=== PATIENT | male | born 1970 | race Caucasian/White ===

== ENCOUNTER 2018-02-17 19:22 | Observation (INO) ==
[2018-02-17 20:35] LABS: Basophils # 0.1 K/mm3 (0-0.2); Basophils % 0.6 % (0.1-2.0); Eosinophils # 0.4 K/mm3 (0.0-0.4); Eosinophils % 3.5 % (0.1-12.0); Hematocrit 43.2 % (42.0-52.0); Hemoglobin 16.2 g/dL (14.1-18.0); Lymphocytes # 2.6 K/mm3 (0.7-4.5); Lymphocytes % 21.6 K/mm3 (10-50); Mean Corpuscular HGB Conc 37.6 g/dL (31.8-35.4); Mean Corpuscular Hemoglobin 32.1 pg (27.0-31.2); Mean Corpuscular Volume 85.3 fl (80-94); Mean Platelet Volume 9.9 fl (7.4-10.4); Monocytes # 0.6 K/mm3 (0.1-1.0); Monocytes % 4.6 % (1.7-9.3); Neutrophils # 8.5 K/mm3 (1.8-7.8); Neutrophils % 69.7 % (37.0-80.0); Platelet Count 178 K/mm3 (142-424); Red Blood Count 5.06 M/mm3 (4.60-6.20); Red Cell Distribution Width 14.1 % (11.5-17.5); White Blood Count 12.2 K/mm3 (4.8-10.8)
[2018-02-17 20:49] LABS: Microscopic, Urine URINE MICROSCOPIC (MICROSCOPIC)
[2018-02-17 20:55] LABS: Appearance,Urine CLEAR (Clear); Bilirubin,Urine Negative (Negative); Blood, Urine TRACE-I (Negative); Color,Urine YELLOW (Yellow); Glucose,Urine (UA) Negative (Negative); Ketones,Urine Negative (Negative); Leukocyte Esterase,Urine Negative (Negative); Protein,Urine 3+ (Negative); Specific Gravity, Urine >= 1.030 (1.005-1.030); Urobilinogen,Urine 0.2 EU/dl (0.2)
[2018-02-17 20:55] LABS: Anion Gap 13.9 mEq/L (5-15); Blood Urea Nitrogen 23 mg/dL (7-18); Calcium 8.9 mg/dL (8.5-10.1); Carbon Dioxide 24 mmol/L (21.0-32.0); Chloride 106 mmol/L (98-107); Glucose 109 mg/dL (74-106); Potassium 3.9 mmoL/L (3.5-5.1); Sodium 140 mmol/L (136-145)
--- NOTE | 2018-02-17 21:55 | Emergency Department Note ---
ED Disposition Clinical Impression: Hypertensive crisis, Renal insufficiency Disposition: Admitted as Observation Condition on Discharge: Good - Critical Care Critical Care Time: No Attestation: On 02/17/18, the high probability of a clinically significant, sudden or life threatening deterioration of the following system(s) required my full and direct attention, intervention and personal management. The time I documented below is in addition to time spent performing reported procedures but includes the following listed in this critical care notation. Medical Decision Making - Medical Records Medical records reviewed: Yes: I reviewed the patient's medical records. - Aram Inquiry Pt receiving controlled substance: No Vital Signs: 02/17/18 19:29 02/17/18 20:29 02/17/18 20:53 Temperature 98.4 F Temperature Source Oral Pulse Rate [Left Brachial] 85 74 69 Respiratory Rate 18 20 22 Blood Pressure [Left Arm] 204/142 204/86 208/135 Blood Pressure Mean [Left Arm] 162 125 159 Blood Pressure Source [Left Arm] Automatic Cuff Manual Cuff/ Auscultation Automatic Cuff Blood Pressure Position [Left Arm] Sitting Supine Supine 02 Sat by Pulse Oximetry 96 100 98 Oxygen Delivery Method Room Air Room Air Room Air - Lab Data Lab results reviewed: Yes: I reviewed the patient's lab results. Lab Results 02/17/18 19:47: WBC 12.2 H, RBC 5.06, Hgb 16.2, Hct 43.2, MCV 85.3, MCH 32.1 H, MCHC 37.6 H, RDW 14.1, Plt Count 178, MPV 9.9, Neut % (Auto) 69.7, Lymph % (Auto ) 21.6, [place] % (Auto) 4.6, Eos % (Auto) 3.5, Baso % (Auto) 0.6, Neut # (Auto) 8.5 H, Lymph # (Auto) 2.6, [place] # (Auto) 0.6, Eos # (Auto) 0.4, Baso # (Auto) 0.1 02/17/18 19:47: Sodium 140, Potassium 3.9, Chloride 106, Carbon Dioxide 24, Anion Gap 13.9, BUN 23 H, Creatinine 1.84 H, Estimated Creat Clear 42, Estimated GFR 40 L, Est GFR ( Amer) 48 L, Glucose 109 H, Calcium 8.9, Troponin I < 0.02 02/17/18 20:45: Urine Color Yellow, Urine Appearance Clear, Urine pH 6.0, Ur Specific [place] >= 1.030, Urine Protein 3+, Urine Glucose (UA) Negative, Urine Ketones Negative, Urine Blood Trace-i, Urine Nitrate Negative, Urine Bilirubin Negative, Urine Urobilinogen 0.2, Ur Leukocyte Esterase Negative Result diagrams: 02/17/18 19:47 02/17/18 19:47 Orders (Tests/Meds): ED MEDICATIONS Discontinued Medications Generic Name Dose Route Start Last Admin Trade Name Katt PRN Reason Stop Dose Admin Clonidine HCl 0.1 mg 02/17/18 20:27 02/17/18 20:30 Clonidine 0.1mg Tablet PO 02/17/18 20:28 0.1 mg ONCE ONE Administration ORDERS Category Date Time Status Urinalysis and Microscopic Stat Lab 02/17/18 20:45 Results ECG Request by /Lupis Stat Y 02/17/18 19:43 Ordered - Radiology Data #1 Image(s): Chest Image Reviewed: Yes I reviewed the patient's radiology image Preliminary Findings: Normal/NAD - ECG Data Tracing #1 I reviewed this ECG and interpreted as documented below: Normal Sinus Rhythm: Yes Ischemic changes: non-specific ST-T wave changes ECG compared to prior tracings: this ECG reveals significant changes Headache HPI - General Chief Complaint: Headache Stated Complaint: Shaji BP,HOBBS Time Seen by Provider: 02/17/18 20:00 Mode of Arrival: Ambulatory Source of Information: Patient, Medical Record Limitations: No Limitations Description of Symptoms (Recalled from ER Triage Doc. by RN): Pt states he has has a hx of Hypertension and doesn't take his medicine that his PCP gave him because it makes him sick, and his BP is "sam high" and he has a HOBBS for the last 3 days now. Pt denies calling his PCP because he doesn't have a phone. Pt denies any other symptoms at this time. - History of Present Illness HPI Narrative: pt with elevated bp and hobbs but no visual loss or focal neuro sx- has a hx of htn but has been off meds Complaint: headache Onset (ago): day(s) Onset description: gradual Location: diffuse Severity: moderate Treatments prior to arrival: none - Related Data Home Medications Medication Instructions Recorded Confirmed Aspirin [Aspir 81] 81 mg PO DAILY 02/17/18 02/17/18 Allergies Allergy/AdvReac Type Severity Reaction Status Date / Time No Known Allergies Allergy Verified 02/17/18 19:36 [facility] History I have reviewed the patient's past medical history: Yes Medical History: Denies:: Diabetes Mellitus Type 1, Diabetes Mellitus Type 2 - Social History Smoking Status: Current every day smoker Alcohol Intake: former - Psychiatric History Expresses thoughts of harming self/others: None Suicide Plan Description: No Plan ROS Obtained: Yes All systems reviewed & no additional complaints - Constitutional Constitutional: Denies fever(s) - Eyes Eyes: Denies change in vision - ENT Ears, Nose, Mouth, and Throat: Denies sore throat - Cardiovascular Cardiovascular: Denies chest pain - Respiratory Respiratory: No cough - Gastrointestinal Gastrointestingal: Denies: abdominal pain, vomiting - Genitourinary Male Genitourinary: Denies hematuria - Musculoskeletal Musculoskeletal: Denies joint pain, Denies joint swelling - Integumentary/Breasts Skin/Breast: Denies rash - Neurologic Neurologic: Denies abnormal speech, Denies dizziness, Denies focal weakness, Reports headache(s), Denies loss of vision, Denies seizure-like activity Physical Exam - General General appearance: alert, in no apparent distress - Head Head exam: normocephalic - Eye Eye exam: Present: PERRL, EOMI. Absent: scleral icterus - ENT ENT exam: Present: mucous membranes dry - Neck Neck exam: Present: trachea midline - Respiratory Respiratory exam: Present: normal lung sounds bilaterally - Cardiovascular Cardiovascular exam: Present: regular rate, systolic murmur - Abdominal Exam Abdominal exam: Present: soft - Extremities Exam Extremities exam: Absent: calf tenderness - Neurological Exam Neurological exam: Present: alert, oriented X3, CN II-XII intact, normal gait - Psychiatric Psychiatric exam: Present: normal affect - Skin Skin exam: Absent: rash
[2018-02-17 22:01] LABS: Bacteria,Urine 1+ /lpf; Mucus,Urine 1+ /lpf
[2018-02-18 06:51] LABS: Basophils # 0.1 K/mm3 (0-0.2); Basophils % 0.8 % (0.1-2.0); Eosinophils # 0.4 K/mm3 (0.0-0.4); Eosinophils % 3.4 % (0.1-12.0); Lymphocytes # 2.1 K/mm3 (0.7-4.5); Lymphocytes % 19.3 K/mm3 (10-50); Mean Corpuscular HGB Conc 33.2 g/dL (31.8-35.4); Mean Corpuscular Hemoglobin 28.5 pg (27.0-31.2); Mean Corpuscular Volume 85.8 fl (80-94); Monocytes # 0.5 K/mm3 (0.1-1.0); Monocytes % 4.9 % (1.7-9.3); Neutrophils # 7.9 K/mm3 (1.8-7.8); Neutrophils % 71.7 % (37.0-80.0); Platelet Count 180 K/mm3 (142-424); Red Blood Count 5.59 M/mm3 (4.60-6.20); Red Cell Distribution Width 14.2 % (11.5-17.5); White Blood Count 11.1 K/mm3 (4.8-10.8)
[2018-02-18 07:03] LABS: Anion Gap 13.9 mEq/L (5-15); Blood Urea Nitrogen 22 mg/dL (7-18); Calcium 8.7 mg/dL (8.5-10.1); Carbon Dioxide 24 mmol/L (21.0-32.0); Chloride 105 mmol/L (98-107); Chol/HDL Ratio 6.6 (1-3.5); Cholesterol 232 mg/dL (140-200); Glucose 110 mg/dL (74-106); HDL Cholesterol 35 mg/dL (27-67); Potassium 3.9 mmoL/L (3.5-5.1); Sodium 139 mmol/L (136-145)
[2018-02-18 07:04] LABS: Triglycerides 451 mg/dL (30-200)
--- NOTE | 2018-02-18 07:51 | Pharmacy Consult Notes ---
[facility] Pharmacy VTE Monitoring - Patient Demographics Admission date: 02/17/18 Report Date: 02/18/18 Time: 07:51 Allergies/Adverse Reactions: Patient Allergies No Known Allergies Allergy (Verified 02/17/18 19:36) Height: 1.63 m Weight: 125.447 kg Patient Problems: Current Active Problems Hypertensive crisis (Acute) Renal insufficiency (Acute) - VTE Risk Labs: VTE Related Lab Results Hgb 16.0 g/dL (14.1-18.0) 02/18/18 06:30 Hct 48.0 % (42.0-52.0) 02/18/18 06:30 Plt Count 180 K/mm3 (142-424) 02/18/18 06:30 BUN 22 mg/dL (7-18) H 02/18/18 06:30 Creatinine 1.77 mg/dL (0.70-1.30) H 02/18/18 06:30 Estimated Creat Clear 43 mL/min (0-300) 02/18/18 06:30 Was VTE Risk Assessment Performed: No VTE Score: 3 VTE Risk Level: Low Risk - Prophylaxis VTE Prophylaxis Ordered?: Yes Types of VTE Prophylaxis: TEDS Knee High Location of Applied Device: Bilateral Lower Extremeties - VTE Diagnosis Confirmed Treatment or plan recommended: Continue Current Treatment
--- NOTE | 2018-02-18 08:15 | Consult Report ---
History of Present Illness Consult date: 02/18/18 Requesting physician: Zaki Fuller Consult reason: hypertension Chief complaint: High blood pressure, Headache Additional Medical History:: 1. HTN 2. Tobacco use 3. Hyperlipidemia History of present illness: 47 yo WM admitted for malignant HTN with headaches. Pt stopped taking his BP meds due to nausea. Denies chest pains, previous CAD, history of CVA or seizure activity. EKG is sinus with NSSTTW abnormalities that have been present back to 2016 tracings. Cardiology consulted for evaluation and recommendations. Pt does relate fast heart rates at times without near syncope or syncope. Poor historian. Troponins normal X 4. [facility] History Medical History: Reports:: Hyperlipidemia, Hypertension Denies:: Cancer, Diabetes Mellitus Type 1, Diabetes Mellitus Type 2, Internal Pacemaker, MRSA Other Surgeries: No: Pacemaker Amputation: No Fractures: No - *Social History Educational Level: Completed High School Smoking Status: Current every day smoker Tobacco Type: cigarettes # Packs/Day (cigarettes): 1 Alcohol Intake: former Occupational Status: unemployed Housing: house Household Members: significant other - Psychiatric History Expresses thoughts of harming self/others: None Suicide Plan Description: No Plan *Family Hx:: Hypertension Meds Home Medications Medication Instructions Recorded Confirmed Type Aspirin [Aspir 81] 81 mg PO DAILY 02/17/18 02/17/18 History Allergies Allergy/AdvReac Type Severity Reaction Status Date / Time No Known Allergies Allergy Verified 02/17/18 19:36 Review of Systems - *Cardiovascular Denies chest pain - *Respiratory Reports shortness of breath with activity - *Gastrointestinal Denies abdominal pain - *Neurologic Reports headache(s), Denies abnormal speech, Denies dizziness, Denies localized weakness, Denies loss of vision, Denies seizure-like activity Exam Vital signs and Labs for Last 24 Hours: Temp Pulse Resp BP Pulse Ox 98.2 F 53 L 20 180/120 98 02/18/18 07:53 02/18/18 07:53 02/18/18 07:53 02/18/18 07:53 02/18/18 07:53 Laboratory Results - last 24 hr 02/17/18 19:47: WBC 12.2 H, RBC 5.06, Hgb 16.2, Hct 43.2, MCV 85.3, MCH 32.1 H, MCHC 37.6 H, RDW 14.1, Plt Count 178, MPV 9.9, Neut % (Auto) 69.7, Lymph % (Auto ) 21.6, [place] % (Auto) 4.6, Eos % (Auto) 3.5, Baso % (Auto) 0.6, Neut # (Auto) 8.5 H, Lymph # (Auto) 2.6, [place] # (Auto) 0.6, Eos # (Auto) 0.4, Baso # (Auto) 0.1 02/17/18 19:47: Sodium 140, Potassium 3.9, Chloride 106, Carbon Dioxide 24, Anion Gap 13.9, BUN 23 H, Creatinine 1.84 H, Estimated Creat Clear 42, Estimated GFR 40 L, Est GFR ( Amer) 48 L, Glucose 109 H, Calcium 8.9, Troponin I < 0.02 02/17/18 20:45: Urine Color Yellow, Urine Appearance Clear, Urine pH 6.0, Ur Specific [place] >= 1.030, Urine Protein 3+, Urine Glucose (UA) Negative, Urine Ketones Negative, Urine Blood Trace-i, Urine Nitrate Negative, Urine Bilirubin Negative, Urine Urobilinogen 0.2, Ur Leukocyte Esterase Negative, Urine RBC 3-5 , Urine WBC 3-5, Ur Squamous Epith Cells 3-5, Urine Bacteria 1+, Urine Mucus 1+ 02/18/18 00:30: Troponin I < 0.02 02/18/18 03:40: Troponin I < 0.02 02/18/18 06:30: WBC 11.1 H, RBC 5.59, Hgb 16.0, Hct 48.0, MCV 85.8, MCH 28.5, MCHC 33.2, RDW 14.2, Plt Count 180, MPV 10.0, Neut % (Auto) 71.7, Lymph % (Auto ) 19.3, [place] % (Auto) 4.9, Eos % (Auto) 3.4, Baso % (Auto) 0.8, Neut # (Auto) 7.9 H, Lymph # (Auto) 2.1, [place] # (Auto) 0.5, Eos # (Auto) 0.4, Baso # (Auto) 0.1 02/18/18 06:30: Sodium 139, Potassium 3.9, Chloride 105, Carbon Dioxide 24, Anion Gap 13.9, BUN 22 H, Creatinine 1.77 H, Estimated Creat Clear 43, Estimated GFR 41 L, Est GFR ( Amer) 50 L, Glucose 110 H, Calcium 8.7, Troponin I < 0.02, Triglycerides 451 H, Cholesterol 232 H, HDL Cholesterol 35, Cholesterol/HDL Ratio 6.6 H I & O for Last 24 hours: Intake & Output 02/15/18 02/16/18 02/17/18 02/18/18 11:59 11:59 11:59 11:59 Intake Total 299 / 299 Output Total 800 / 800 Balance -501 / -501 Weight 276 lb 9 oz - *Routine Neck Exam Absent: JVD, carotid bruit - *Routine Respiratory Exam Present: CTA bilaterally - *Routine Cardiovascular Exam Present: RRR. Absent: murmur, gallop, rubs - *Routine Extremities Exam Absent: edema Assessment and Plan (1) Tobacco use Current visit: Yes Status: Acute Category: Social Hx Code(s): Z72.0 - Tobacco use (2) Hypertensive crisis Current visit: Yes Status: Acute Category: Medical Code(s): I16.9 - Hypertensive crisis, unspecified (3) Renal insufficiency Current visit: Yes Status: Acute Category: Medical Code(s): N28.9 - Disorder of kidney and ureter, unspecified - Assessment and plan all Dx Assessment and Plan for all problems:: 1. Continue lisinopril as ordered but monitor renal status 2. Add coreg for BP and palpitations 3. Await echo results 4. Consider renal ultrasound if BP labile after starting meds.
--- NOTE | 2018-02-18 13:32 | History & Physical Report ---
*Admission Date: 02/17/18 *Chief complaint: headache *History of present illness: this wm who has diffuse haque but no focal neuro sx presented to ed for eval - he has known htn but is noncompliant for multiple factors - despite ed treatment remained symptomatic and had abn labs and ekg and was admitted for eval and treatment [facility] History I have reviewed the patient's past medical history: Yes Medical History: Reports:: Hyperlipidemia, Hypertension Denies:: Cancer, Diabetes Mellitus Type 1, Diabetes Mellitus Type 2, Internal Pacemaker, MRSA Other Surgeries: No: Pacemaker Amputation: No Fractures: No - *Social History Educational Level: Completed High School Smoking Status: Current every day smoker Tobacco Type: cigarettes # Packs/Day (cigarettes): 1 Alcohol Intake: former Occupational Status: unemployed Housing: house Household Members: significant other - Psychiatric History Expresses thoughts of harming self/others: None Suicide Plan Description: No Plan *Family Hx:: Hypertension Review of Systems - Review of Systems Review of systems:: pertinent systems reviewed and negative unless documented below - Constitutional Reports headache(s) - Eyes Denies change in vision - ENT Denies dizziness - *Cardiovascular Denies chest pain - *Respiratory Denies cough - *Gastrointestinal Denies abdominal pain - *Genitourinary Denies blood in urine - *Musculoskeletal Denies joint pain - Integumentary/Breasts Denies rash - *Neurologic Reports headache(s), Denies abnormal speech, Denies dizziness, Denies localized weakness, Denies loss of vision, Denies seizure-like activity - Psychiatric Denies anxiety Meds Home Medications Medication Instructions Recorded Confirmed Type Aspirin [Aspir 81] 81 mg PO DAILY 02/17/18 02/17/18 History Allergies Allergy/AdvReac Type Severity Reaction Status Date / Time No Known Allergies Allergy Verified 02/17/18 19:36 Exam Vital signs and Labs for Last 24 Hours: Temp Pulse Resp BP Pulse Ox 98.2 F 53 L 20 180/120 98 02/18/18 07:53 02/18/18 07:53 02/18/18 07:53 02/18/18 07:53 02/18/18 08:00 Laboratory Results - last 24 hr 02/17/18 19:47: WBC 12.2 H, RBC 5.06, Hgb 16.2, Hct 43.2, MCV 85.3, MCH 32.1 H, MCHC 37.6 H, RDW 14.1, Plt Count 178, MPV 9.9, Neut % (Auto) 69.7, Lymph % (Auto ) 21.6, [place] % (Auto) 4.6, Eos % (Auto) 3.5, Baso % (Auto) 0.6, Neut # (Auto) 8.5 H, Lymph # (Auto) 2.6, [place] # (Auto) 0.6, Eos # (Auto) 0.4, Baso # (Auto) 0.1 02/17/18 19:47: Sodium 140, Potassium 3.9, Chloride 106, Carbon Dioxide 24, Anion Gap 13.9, BUN 23 H, Creatinine 1.84 H, Estimated Creat Clear 42, Estimated GFR 40 L, Est GFR ( Amer) 48 L, Glucose 109 H, Calcium 8.9, Troponin I < 0.02 02/17/18 20:45: Urine Color Yellow, Urine Appearance Clear, Urine pH 6.0, Ur Specific [place] >= 1.030, Urine Protein 3+, Urine Glucose (UA) Negative, Urine Ketones Negative, Urine Blood Trace-i, Urine Nitrate Negative, Urine Bilirubin Negative, Urine Urobilinogen 0.2, Ur Leukocyte Esterase Negative, Urine RBC 3-5 , Urine WBC 3-5, Ur Squamous Epith Cells 3-5, Urine Bacteria 1+, Urine Mucus 1+ 02/18/18 00:30: Troponin I < 0.02 02/18/18 03:40: Troponin I < 0.02 02/18/18 06:30: WBC 11.1 H, RBC 5.59, Hgb 16.0, Hct 48.0, MCV 85.8, MCH 28.5, MCHC 33.2, RDW 14.2, Plt Count 180, MPV 10.0, Neut % (Auto) 71.7, Lymph % (Auto ) 19.3, [place] % (Auto) 4.9, Eos % (Auto) 3.4, Baso % (Auto) 0.8, Neut # (Auto) 7.9 H, Lymph # (Auto) 2.1, [place] # (Auto) 0.5, Eos # (Auto) 0.4, Baso # (Auto) 0.1 02/18/18 06:30: Sodium 139, Potassium 3.9, Chloride 105, Carbon Dioxide 24, Anion Gap 13.9, BUN 22 H, Creatinine 1.77 H, Estimated Creat Clear 43, Estimated GFR 41 L, Est GFR ( Amer) 50 L, Glucose 110 H, Calcium 8.7, Troponin I < 0.02, Triglycerides 451 H, Cholesterol 232 H, HDL Cholesterol 35, Cholesterol/HDL Ratio 6.6 H I & O for Last 24 hours: Intake & Output 02/16/18 02/17/18 02/18/18 02/19/18 11:59 11:59 11:59 11:59 Intake Total 779 / 779 Output Total 800 / 800 Balance - Weight 276 lb 9 oz - Constitutional no acute distress - *Routine HEENT Exam Head: Present: normocephalic, atraumatic Eye: Present: EOMI, PERRL ENT: Present: mucous membranes dry - *Routine Neck Exam Present: supple - *Routine Respiratory Exam Present: CTA bilaterally - *Routine Cardiovascular Exam Present: RRR, murmur - *Routine Abdominal Exam Present: soft - *Routine Extremities Exam Absent: calf tenderness - *Routine Skin Exam Present: intact - *Routine Neurological Exam Present: alert, oriented X3, CN II-XII intact - Routine Psychiatric Exam Present: normal affect H&P: Result - Labs Labs: Short CBC 02/17/18 02/18/18 Range/Units 19:47 06:30 WBC 12.2 H 11.1 H (4.8-10.8) K/mm3 Hgb 16.2 16.0 (14.1-18.0) g/dL Hct 43.2 48.0 (42.0-52.0) % Plt Count 178 180 (142-424) K/mm3 [facility] 02/17/18 02/18/18 19:47 06:30 Sodium 140 139 Potassium 3.9 3.9 Chloride 106 105 Carbon Dioxide 24 24 BUN 23 H 22 H Creatinine 1.84 H 1.77 H Glucose 109 H 110 H Calcium 8.9 8.7 Cardiac Enzymes 02/17/18 02/18/18 02/18/18 Range/Units 19:47 00:30 03:40 Troponin I < 0.02 < 0.02 < 0.02 (0.00-0.06) ng/ml 02/18/18 Range/Units 06:30 Troponin I < 0.02 (0.00-0.06) ng/ml Urine 02/17/18 Range/Units 20:45 Urine Color Yellow (Yellow) Urine Appearance Clear (Clear) Urine pH 6.0 (5.0-8.5) Ur Specific [place] >= 1.030 (1.005-1.030) Urine Protein 3+ (Negative) Urine Glucose (UA) Negative (Negative) Assessment and Plan (1) Tobacco use Current visit: Yes Status: Acute Category: Social Hx Code(s): Z72.0 - Tobacco use (2) Hypertensive crisis Current visit: Yes Status: Acute Category: Medical Code(s): I16.9 - Hypertensive crisis, unspecified (3) Renal insufficiency Current visit: Yes Status: Acute Category: Medical Code(s): N28.9 - Disorder of kidney and ureter, unspecified (4) Overweight Current visit: Yes Status: Acute Category: Medical Code(s): E66.3 - Overweight
[2018-02-19 08:42] LABS: Anion Gap 13.7 mEq/L (5-15); Calcium 8.4 mg/dL (8.5-10.1); Potassium 3.7 mmoL/L (3.5-5.1)
--- NOTE | 2018-02-19 08:52 | Progress Note ---
Subjective Date: 02/19/18 Time: 08:50 Principal diagnosis: Malignant HTN Interval history: 47-year-old white male in bed in no acute distress. He denies headache or chest pain. Somewhat frustrated by the lack of ability to move around due to the IV fluids. He does have some low back and buttocks discomfort from being in bed. Blood pressure continues to be labile but overall improving slowly. Exam Vital signs and Labs for Last 24 Hours: Temp Pulse Resp BP Pulse Ox 97.8 F 61 20 190/120 99 02/19/18 07:37 02/19/18 07:37 02/19/18 07:37 02/19/18 07:37 02/19/18 07:37 Laboratory Results - last 24 hr 02/19/18 08:15: Sodium 140, Potassium 3.7, Chloride 105, Carbon Dioxide 25, Anion Gap 13.7, BUN 24 H, Creatinine 1.65 H, Estimated Creat Clear 46, Estimated GFR 45 L, Est GFR ( Amer) 54 L, Glucose 128 H, Calcium 8.4 L I & O for Last 24 hours: Intake & Output 02/16/18 02/17/18 02/18/18 02/19/18 11:59 11:59 11:59 11:59 Intake Total 779 / 779 2600 / 2600 Output Total 800 / 800 2700 / 2700 Balance -21 / -21 -100 / -100 Weight 276 lb 9 oz 276 lb 9.012 oz - *Routine HEENT Exam Head: Present: normocephalic Eye: Present: EOMI - *Routine Respiratory Exam Present: CTA bilaterally - *Routine Cardiovascular Exam Present: RRR - *Routine Extremities Exam Absent: edema Progress Note: A&P (1) Hypertensive crisis Status: Acute Current Visit: Yes (2) Tobacco use Status: Acute Current Visit: Yes (3) Renal insufficiency Status: Acute Current Visit: Yes (4) Overweight Status: Acute Current Visit: Yes Assessment and Plan for All Diagnoses:: Will increase Coreg to 12.5 mg twice daily Continue Norvasc 10 mg daily. Echocardiogram reviewed and show normal LVEF but with moderate concentric LVH. Recommend changing from lisinopril to losartan HCT 50/12.5 mg daily upon discharge. Patient is adament about going home today. Needs close management of BP as outpatient, either with PCP or our office.
--- NOTE | 2018-02-19 15:24 | Cardiology Report ---
PROCEDURE: 2-D M-mode and color Doppler study INDICATIONS FOR THE TEST: Chest pain COPD Heart Murmur+ Tobacco Smoking+ Palpitations Fatigue Syncope Edema Hypertension+Diabetes Mellitus Rheumatic Fever SOB [place] Obesity Hyperlipidemia Family History HD Additional History NON-COMPLIANT PATIENT INFORMATION HEIGHT: 64 WEIGHT:276 GENDER: Male B/P:208/142 2-D/M-MODE INTERPRETATION: 2-D MEASUREMENTS OBSERVED VALUES IN CMS Right Ventricular Dimension (RVDd) 2.2 Interventricular Septum (Thickness)(IVsd) 1.1 Left Ventricular Internal Dimensions(LVIDd) 5.6 Left Ventricular Posterior Wall (Thickness)(LVPWd) 1.0 Aortic Root 3.4 Aortic Cusp Separation 2.1 Left Atrial Dimensions (LAD) 4.9 2D 1. Left atrium is moderately enlarged, left ventricle is normal size, there is qualitatively moderately left ventricular hypertrophy present, visually estimated ejection fraction 50% with no obvious regional wall motion abnormality. 2. The right atrium is normal size, right ventricle is qualitatively mildly enlarged with normal contractility. 3. The aortic valve is minimally thickened and fibrosed. 4. The mitral and tricuspid valvular grossly normal. 5. The pulmonic valve is poorly visualized. 6. No significant pericardial effusion noted. DOPPLER INTERROGATION: Doppler interrogation of the aortic, mitral and tricuspid valvular presence of mild mitral and tricuspid regurgitation, tricuspid and jet velocity insufficient for calculation of the right ventricular systolic pressure, grade 1 diastolic dysfunction seen with tissue Doppler evidence of raised left atrial pressure. Tricuspid regurgitant jet velocity is insufficient for calculation of the right ventricular systolic pressure. CONCLUSION: 1. Enlarged left atrium, normal left ventricular size, moderate concentric left ventricular estimated ejection fraction 50% with no obvious regional wall motion abnormality, grade 1 diastolic dysfunction seen with tissue Doppler evidence of raised left atrial pressure. 2. Mild mitral and tricuspid regurgitation 3. No significant pericardial effusion noted.
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
== END 2018-02-19 18:30 | disposition home or self-care (01) ==
LOC: ER 19:22 → 2ND 19:22
PROVIDERS: ADMIT Emergency Medicine; ATTEND Emergency Medicine
CPT/HCPCS: 36415; 71020; 71046; 80048; 80061; 81001; 84484; 85025; 93005; 93306; 93976; 99285; G0378

== ENCOUNTER → 2018-03-12 06:03 | Outpatient (CLI) | payer BC, SELFPAY | PROVIDERS: Family Provider Family Medicine; PCP Emergency Medicine; Visit Provider Internal Medicine | DX: I16.9 Hypertensive crisis, unspecified (principal); E66.3 Overweight; N28.9 Disorder of kidney and ureter, unspecified; I10 Essential (primary) hypertension; Z72.0 Tobacco use ==

== ENCOUNTER → 2018-03-23 06:16 | Outpatient (CLI) | payer BC, SELFPAY ==
--- NOTE | 2018-03-23 06:20 | NM_ITS ---
CARDIOLITE SPECT MYOCARDIAL PERFUSION SCAN, REST AND STRESS: EXERCISE STRESS [facility] REVIEW QGS EF AND WALL MOTION EVALUATION: QPS - PERFUSION EVALUATION HISTORY: HTN DOSE: 10.60 mCi technetium 99m mibi intravenously at rest followed by 31.3 mCi technetium 99m mibi following the intravenous ministration of 0.4 mg of Lexiscan. Resting blood pressure is 151/93. Stress blood pressure 165/65. FINDINGS: Ejection fraction is calculated to be 37%. Stress images reveal severely decreased activity in the inferior wall with severely decreased activity in the apex mildly decreased in the anterior wall. Rest images reveal slightly improved activity in the apex but no significant change. Gated images calculated ejection fraction of 37% with mid anterior apical and inferior apical hypokinesis. Left ventricular dilatation is present IMPRESSION: This is an abnormal high risk Myoview was severe left ventricular dysfunction large regional wall motion abnormalities and left ventricular dilatation. There appears to be a nontransmural myocardial infarction involving most of the inferior wall with partial reversibility in the apex and previous nontransmural myocardial infarction involving the anterior wall with associated regional wall motion abnormality. Clinical correlation is advised
--- NOTE | 2018-03-23 07:15 | HMH.ITSHM ---
PREDNISONE HYDROCHLOROTHIAZIDE CARVEDILOL AMLODIPINE LOSARTAN ATORVASTATIN ASA
== END ==
PROVIDERS: Family Provider Family Medicine; PCP Emergency Medicine; Visit Provider Internal Medicine
DX: E66.3 Overweight (principal); I10 Essential (primary) hypertension; I16.9 Hypertensive crisis, unspecified; N28.9 Disorder of kidney and ureter, unspecified; Z72.0 Tobacco use
CPT/HCPCS: 78452; 93017; A9502; J2785

== ENCOUNTER 2018-10-30 16:33 | Emergency (ER) | payer OTHER, SELFPAY ==
[2018-10-30 16:33] VITALS: BP 174/116; BP 192/110; PULSE 57; PULSE 61; RESP 20; TEMP 36.6; O2SAT 100; BMI 42.9
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
[2018-10-30 18:20] VITALS: BP 163/89; PULSE 88; RESP 16; TEMP 36.6; O2SAT 97
== END 2018-10-30 18:21 | disposition home or self-care (01) ==
PROVIDERS: Emergency Provider Emergency Medicine; PCP Emergency Medicine
DX: S20.219A Contusion of unspecified front wall of thorax, initial encounter (principal); S40.012A Contusion of left shoulder, initial encounter; E78.5 Hyperlipidemia, unspecified; I10 Essential (primary) hypertension; F17.210 Nicotine dependence, cigarettes, uncomplicated; V89.2XXA Person injured in unspecified motor-vehicle accident, traffic, initial encounter
CPT/HCPCS: 71046; 73000; 99282

== ENCOUNTER → 2019-02-19 10:43 | Outpatient (CLI) | payer BC, SELFPAY | LOC: RT 10:44 | PROVIDERS: PCP Emergency Medicine; Visit Provider Internal Medicine Cardiovascular Disease | DX: I47.1 Supraventricular tachycardia (principal); R07.9 Chest pain, unspecified; R06.02 Shortness of breath; I10 Essential (primary) hypertension; I25.10 Atherosclerotic heart disease of native coronary artery without angina pectoris; N18.9 Chronic kidney disease, unspecified | CPT/HCPCS: 93270 ==

== ENCOUNTER 2020-01-04 15:08 | Emergency (ER) | payer BC, SELFPAY ==
[2020-01-04 15:10] VITALS: BP 181/116; PULSE 88; RESP 18; TEMP 36.8; O2SAT 100; BMI 42.9
--- NOTE | 2020-01-04 15:36 | HMH.EDUTC ---
[facility] Disposition Clinical Impression: Wound of left lower extremity Qualifiers: Encounter type: initial encounter Qualified Code(s): S81.802A - Unspecified open wound, left lower leg, initial encounter Disposition: Home, Self-Care Condition on Discharge: Good Instructions: DI for Wound Infection, Skin Wound, Clindamycin Additional Instructions: Keep wound area clean and dry Use Hibacleanse to clean area *Make sure to take medication as prescribed Make sure to follow up as discussed for wound debridement and cleaning Tomorrow evening after 8pm in the ED with Dr Case Return if needed Straight to ER if any life threatening symptoms Prescriptions: clindamycin HCL [Clindamycin HCl 300mg Cap] 300 mg PO Q6 10 Days #40 cap Transmission Status: Pending to [facility] Referrals: Zaki Fuller MD [Primary Care Provider] - As needed Time of Disposition: 16:06 Medical Decision Making - Aram Inquiry Pt receiving controlled substance: No Aarm was queried for this patient: No Vital Signs: 01/04/20 15:10 Temperature 98.2 F Temperature Source Oral Pulse Rate [Radial] 88 Respiratory Rate 18 Blood Pressure [Right Arm] 181/116 H Blood Pressure Mean [Right Arm] 137 Blood Pressure Source [Right Arm] Automatic Cuff Blood Pressure Position [Right Arm] Sitting 02 Sat by Pulse Oximetry 100 Oxygen Delivery Method Room Air Medical Decision Narrative: Spoke with patient about transfer to ED for further evaluation, labs and testing and patient declined at this time State that he didn't have time Spoke with Dr Case and he came to [facility] and spoke with patient and again recommended patient come to ED for further imaging, lab testing and debridment of wound and patient still refused, Agreed to return tomorrow night when Dr Caes in ED for further treatment and evaluation. Dr Case recommended Clindamycin 900mg IM then start on Clindamycin 300mg QID and return immediately to ED if any life threatening symptoms [facility] HPI - General Stated complaint: sore L Leg Time Seen by Provider: 01/04/20 15:37 Mode of Arrival: Ambulatory Source of Information: Patient Limitations: No Limitations Description of Symptoms (Recalled from Triage Doc. by RN): sore on the lateral side of his left leg for one month HEENT Symptoms (Recalled from RN notes): No Resp Symptoms (Recalled from RN notes): No Skin Symptoms (Recalled from RN notes): Yes MS Symptoms (Recalled from RN notes): No Functional Status (Recalled from RN notes): wnl - History of Present Illness Provider Complaint: Patient states that he has a wound on his left lower leg that has continued to get worse over the last month States that he was seen and treated in the ER a few months ago and placed on antibiotics and one of the wounds cleared up but then another area started State that he has been trying to take care of it at home but it has continued to get worse States that he has been trying to keep the dog from licking it - Related Data Previous Rx's Medication Instructions Recorded predniSONE [Prednisone 20mg 20 mg PO BID #10 tab 09/11/19 Tab] clindamycin HCL [Clindamycin HCl 300 mg PO Q6 10 Days #40 cap 01/04/20 300mg Cap] Allergies Allergy/AdvReac Type Severity Reaction Status Date / Time No Known Allergies Allergy Verified 02/19/19 09:33 - Worker's Comp Is this a Worker's Comp case?: No [facility] History - Hepatitis A Screen Drug use history?: No High risk sexual behaviors?: No History of sexually transmitted infection?: No Currently employed?: No Childcare worker?: No Do you have indoor plumbing?: Yes Do you have electricity?: Yes Attestation statement:: This patient has been screened for Hepatitis A risk factors. I have reviewed the patient's past medical history: Yes Medical History: Reports:: Atrial Fibrillation, Coronary Artery Disease, Hyperlipidemia, Hypertension Denies:: Cancer, Diabetes Mellitus Type 1, Diabetes Mellitus
[2020-01-04 16:12] VITALS: BP 181/116; PULSE 88; RESP 18; TEMP 36.8; O2SAT 100
== END 2020-01-04 16:14 | disposition home or self-care (01) ==
PROVIDERS: Emergency Provider Nurse Practitioner; PCP Emergency Medicine
DX: S81.802A Unspecified open wound, left lower leg, initial encounter (principal); I48.20 Chronic atrial fibrillation, unspecified; I25.10 Atherosclerotic heart disease of native coronary artery without angina pectoris; E78.5 Hyperlipidemia, unspecified; I10 Essential (primary) hypertension; F17.210 Nicotine dependence, cigarettes, uncomplicated
CPT/HCPCS: 96372; 99201

== ENCOUNTER 2020-01-05 19:30 | Emergency (ER) | payer BC, SELFPAY ==
[2020-01-05 19:32] VITALS: TEMP 36.7
[2020-01-05 19:40] VITALS: BP 220/140; PULSE 82; RESP 18; O2SAT 97; BMI 47.2
--- NOTE | 2020-01-05 19:47 | CT_ITS ---
PROCEDURE: CT LOWER LEG LT WO CON CLINICAL HISTORY: left leg wound COMPARISON: No exams were available for comparison TECHNIQUE: Axial images obtained with sagittal and coronal reformats. All CT scans at the facility use one or more dose reduction, viz: automated exposure control, ma/kV adjustment per patient size (including targeted exams where dose is matched to indication, i.e. head), or iterative reconstruction technique. FINDINGS: There are no bony abnormalities. There is a shallow 21 millimeter subcutaneous ulcer at the level of the mid fibular diaphysis. There is associated edema of majority of the left lower extremity. A small knee joint effusion is noted. IMPRESSION: Shallow mid fibular diaphyseal soft tissue ulcer with associated mild cellulitis Dictated by: Seferino Menendez 01/06/2020 08:39 Electronically signed by Seferino Menendez in [place] 01/06/2020 08:39
[2020-01-05 20:02] VITALS: BP 178/102; PULSE 84; RESP 16; O2SAT 98
[2020-01-05 20:26] LABS: Alanine Aminotransferase 23 U/L (12-78); Albumin Level 4.3 g/dl (3.5-5.0); Albumin/Globulin Ratio 1.2 (1.1-1.8); Alkaline Phosphatase 129 U/L (38-126); Anion Gap 12.6 mEq/L (5-15); Aspartate Amino Transferase 34 U/L (17-59); Bilirubin,Total 0.9 mg/dl (0.2-1.3); Blood Urea Nitrogen 45 mg/dl (9-20); Calcium 9.3 mg/dl (8.4-10.2); Carbon Dioxide 22 mmol/L (22.0-30.0); Chloride 105 mmol/L (98-107); Creatinine Clearance Estimated 24 mL/min (50-200); Estimated Glomerular Filt Rate 22 ml/min (>60); GFR (African American) 26 ML/MIN (>60); Globulin 3.6 g/dL (1.3-3.2); Glucose 103 mg/dl (74-100); Potassium 3.6 mmoL/L (3.5-5.1); Sodium 136 mmol/L (136-145); Total Protein,Serum 7.9 g/dl (6.3-8.2); Uric Acid 10.6 mg/dl (3.5-8.5)
[2020-01-05 20:27] LABS: Lactic Acid 0.9 mmol/L (0.7-2.1)
[2020-01-05 20:30] LABS: Hemoglobin A1C 5.3 % (4.0-6.0)
[2020-01-05 20:32] LABS: C-Reactive Protein 14.1 mg/L (0-4)
[2020-01-05 20:33] LABS: Basophils # 0.1 K/mm3 (0-0.2); Basophils % 0.5 % (0.1-2.0); Eosinophils # 0.4 K/mm3 (0.0-0.4); Eosinophils % 2.5 % (0.1-12.0); Hematocrit 39.1 % (42.0-52.0); Hemoglobin 13.4 g/dL (14.1-18.0); Lymphocytes # 2.9 K/mm3 (0.7-4.5); Lymphocytes % 20.4 % (10-50); Mean Corpuscular HGB Conc 34.2 g/dL (31.8-35.4); Mean Corpuscular Hemoglobin 28.7 pg (27.0-31.2); Mean Platelet Volume 9.8 fl (7.4-10.4); Monocytes # 0.8 K/mm3 (0.1-1.0); Neutrophils # 9.9 K/mm3 (1.8-7.8); Neutrophils % 70.5 % (37.0-80.0); Platelet Count 231 K/mm3 (142-424); Red Blood Count 4.65 M/mm3 (4.60-6.20); Red Cell Distribution Width 14.5 % (11.5-17.5); White Blood Count 14.1 K/mm3 (4.8-10.8)
--- NOTE | 2020-01-05 20:41 | PC.NURSE ---
spoke with rad and discussed renal function. not able to use contrast at this time.
--- NOTE | 2020-01-05 20:49 | PC.NURSE ---
pt to rad.
[2020-01-05 21:15] LABS: Erythrocyte Sedimentation Rate 94 mm/hr (0-15)
--- NOTE | 2020-01-05 21:35 | HMH.EDSKAF ---
ED Disposition Clinical Impression: Abscess of skin or subcutaneous tissue, Necrotic eschar Disposition: Home, Self-Care Condition on Discharge: Good Instructions: DI for Skin Abscess Additional Instructions: If condition worsens as and getting a fever or the redness around the area start spreading up the leg please return back to the emergency department. Otherwise please follow-up with Dr. Tomlin and surgery on Friday in his office. Please call tomorrow morning for an appointment. Prescriptions: clindamycin HCL [Clindamycin HCl 300mg Cap] 300 mg PO Q6 10 Days #40 cap Transmission Status: Pending to [facility] Referrals: Zaki Fuller MD [Primary Care Provider] - - Critical Care Critical Care Time: No Attestation: On 01/05/20, the high probability of a clinically significant, sudden or life threatening deterioration of the following system(s) required my full and direct attention, intervention and personal management. The time I documented below is in addition to time spent performing reported procedures but includes the following listed in this critical care notation. Medical Decision Making - Medical Records Medical records reviewed: Yes: I reviewed the patient's medical records. - Aram Inquiry Pt receiving controlled substance: No Vital Signs: 01/05/20 19:32 01/05/20 19:40 01/05/20 20:02 Temperature 98.1 F Temperature Source Oral Pulse Rate [Right Brachial] 82 84 Respiratory Rate 18 16 Blood Pressure [Right Arm] 220/140 H 178/102 H Blood Pressure Mean [Right Arm] 166 127 Blood Pressure Source [Right Arm] Automatic Cuff Blood Pressure Position [Right Arm] Sitting Sitting 02 Sat by Pulse Oximetry 97 98 Oxygen Delivery Method Room Air Room Air - Lab Data Lab results reviewed: Yes: I reviewed the patient's lab results. Lab Results 01/05/20 20:00: WBC 14.1 H, RBC 4.65, Hgb 13.4 L, Hct 39.1 L, MCV 84.0, MCH 28.7, MCHC 34.2, RDW 14.5, Plt Count 231, MPV 9.8, Neut % (Auto) 70.5, Lymph % (Auto) 20.4, Sully % (Auto) 6.0, Eos % (Auto) 2.5, Baso % (Auto) 0.5, Neut # (Auto) 9.9 H, Lymph # (Auto) 2.9, Sully # (Auto) 0.8, Eos # (Auto) 0.4, Baso # (Auto) 0.1, ESR 94 H 01/05/20 20:00: Sodium 136, Potassium 3.6, Chloride 105, Carbon Dioxide 22, Anion Gap 12.6, BUN 45 H, Creatinine 3.10 H, Estimated Creat Clear 24, Estimated GFR 22 L, Est GFR ( Amer) 26 L, Glucose 103 H, Uric Acid 10.6 H, Calcium 9.3, Total Bilirubin 0.9, AST 34, ALT 23, Alkaline Phosphatase 129 H, C-Reactive Protein 14.1 H, Total Protein 7.9, Albumin 4.3, Globulin 3.6 H, Albumin/Globulin Ratio 1.2 01/05/20 20:00: Hemoglobin A1c 5.3 01/05/20 20:00: Lactate 0.9 Result diagrams: 01/05/20 20:00 01/05/20 20:00 Orders (Tests/Meds): ED MEDICATIONS Generic Name Dose Route Start Last Admin Trade Name Freq PRN Reason Stop Dose Admin Sodium Chloride 1,000 mls @ 999 mls/hr 01/05/20 20:45 01/05/20 20:40 Sod Chlor 0.9% 1000ml Bag IV 01/05/20 21:45 999 mls/hr .Q1H1M LOYD Administration ORDERS Category Date Time Status CT lower leg LT wo con Stat Cat Scan 01/05/20 19:47 Taken Blood Culture Stat Micro 01/05/20 20:00 Received - CT Data CT Scan: Other (Lower extremity) Time Received: 21:[address] Reviewed: Yes: I have viewed the radiologist's interpretation Preliminary Findings: Normal/NAD (There is no underlying abscess on the area of necrosis is only extending into the superficial levels down into the dermis.) Medical Decision Narrative: Spoke to Dr. Tomlin about this patient and we both agree that this patient probably does not need to be admitted but can be treated with p.o. antibiotics and be seen in the office on Friday to set up a debridement of the necrotic lesion. Of course if the patient's condition worsens he is to return to the emergency department immediately for developing a fever or worsening of the cellulitis or increased pain. Skin/Abscess/FB HPI - General Chief complaint
[2020-01-05 22:00] VITALS: BP 123/75; PULSE 65; RESP 16; TEMP 36.8; O2SAT 98
== END 2020-01-05 22:25 | disposition home or self-care (01) ==
PROVIDERS: Emergency Provider Family Medicine; PCP Emergency Medicine
DX: L03.116 Cellulitis of left lower limb (principal); I25.10 Atherosclerotic heart disease of native coronary artery without angina pectoris; I10 Essential (primary) hypertension; I48.91 Unspecified atrial fibrillation; E78.5 Hyperlipidemia, unspecified; F17.210 Nicotine dependence, cigarettes, uncomplicated
CPT/HCPCS: 73700; 80053; 83036; 83605; 84550; 85025; 85651; 86140; 87040; 96365; 96367; 99283; 99284

== ENCOUNTER 2020-01-10 10:08 | Inpatient (IN) | payer BC, SELFPAY ==
[2020-01-10] VITALS (9 sets, daily range): BP systolic 127–234; BP diastolic 82–140; PULSE 52–65; RESP 15–20; TEMP 36.7–37; O2SAT 93–99; BMI 41.1
--- NOTE | 2020-01-10 10:45 | HMH.CNCARD ---
History of Present Illness Consult date: 01/10/20 Requesting physician: Zaki Fuller Consult reason: pre-op evaluation Chief complaint: Left leg pain/ulcer Additional Medical History:: 1. Malignant hypertension A. Echocardiogram, 02/2018, enlarged left atrium, normal LV size, moderate concentric LVH with EF of 50%. No regional wall motion abnormality. Grade 1 diastolic dysfunction. Mild MR and TR. 2. Coronary artery disease A. Abnormal high risk stress test with appearance of nontransmural OR involving inferior wall with partial reversibility in the apex and previous nontransmural OR involving anterior wall with associated regional wall motion abnormality. 03/2018 B. Cardiac catheterization 04/13/2018 showed mild to moderate [id number] coronary artery disease of the LAD, ramus, circumflex and RCA. 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 Normal left ventricular ejection fraction with LVEDP 15 mmHg 3. Ongoing tobacco use 4. Left lower extremity ulcer/cellulitis 5. Chronic kidney disease, stage III-IV A. Creatinine 2.1-3.1 with GFR 22-33 by labs from 02/2019 and 01/01/2020 6. Paroxysmal atrial fibrillation, 02/2019 A. Previously prescribed Xarelto therapy but patient is noncompliant 7. Medication noncompliance complicates all aspects of care. History of present illness: 49-year-old white male seen in our office earlier today for evaluation prior to surgery of left lower extremity ulcer with plans for debridement. I was contacted by Dr. Alvarez on Friday with concern for the patient's blood pressure being greater than 240 systolic. Patient was restarted on his carvedilol 12.5 mg twice daily with plans to see me this a.m. Patient's blood pressure in our office was noted to be 221/127 mmHg. Patient is in quite a bit of pain with the left leg and did not take his blood pressure medicine this morning because he was following instructions to not take anything by mouth with plan for surgery this afternoon. Patient denies any chest pain, pressure or tightness. His EKG in the office was unchanged from previous tracings. Shows sinus rhythm with ST-T abnormalities in the inferior lateral leads. No acute ST segment changes noted. I discussed with the patient the option of being admitted to the hospital due to his markedly elevated blood pressure for better control and potentially undergoing surgery tomorrow. We could also achieve some pain control in the interim. He did agree with this. I spoke with Dr. Fuller and Dr. Alvarez and all were in agreement. [facility] History Medical History: Reports:: Atrial Fibrillation, Coronary Artery Disease, Hyperlipidemia, Hypertension, Transient Ischemic Attacks (TIA) Denies:: Cancer, Diabetes Mellitus Type 1, Diabetes Mellitus Type 2, Internal Pacemaker, MRSA *Have you ever received a pneumonia vaccine?: No *Have you received a flu vaccine this season?: Yes Other Surgeries: Yes: Cardiac Catheterization, Other. No: Pacemaker Amputation: No Fractures: No - *Social History Smoking Status: Current every day smoker Tobacco Type: cigarettes # Packs/Day (cigarettes): 1 Alcohol Intake: never Alcohol Intake Frequency:: a few times a month Substance Use Type: denies use *Occupational Status:: employed Housing: other Household Members: significant other *Travel in the last 8 weeks: None Family Hx:: Hypertension Meds Home Medications Medication Instructions Recorded Confirmed Type carvediloL [Carvedilol 12.5mg Tab] 12.5 mg PO BID 01/10/20 01/10/20 History clindamycin HCL [Clindamycin HCl 300 mg PO Q6 01/10/20 01/10/20 History 300mg Cap] Allergies Allergy/AdvReac Type Severity Reaction Status Date / Time No Known Allergies Allergy Verified 01/10/20 09:34 Review of Systems - Review of Systems Review of systems:: pertinent systems reviewed and negative unless documented below - *Cardiovascular Reports shortnes
--- NOTE | 2020-01-10 11:10 | CA_ITS ---
APPROVED REPORT Exhaust Tender: Herminia Corley RVT Study Quality: FairAdequate Indications: Uncontrolled HTN Risk Factors Hypertension Hyperlipidemia Obesity Smoking Renal Artery Doppler Origin (R) 58.6/ cm/sec Proximal (R) 67.8/ cm/sec Mid (R) 38.7/ cm/sec Distal (R) 43.9/ cm/sec Renal Aorta Ratio (R) 1.11 Segmental A. (R) 20.9/10.9 cm/sec RI: 0.47 Segmental A. Sup (R) 17.3/5.0 cm/sec Segmental A. Mid (R) 19.1/10.9 cm/sec Segmental A. Inf (R) 20.9/10.9 cm/sec Origin (L) 47.4/ cm/sec Proximal (L) 33.2/ cm/sec Mid (L) 33.7/ cm/sec Distal (L) 24.2/ cm/sec Renal Aorta Ratio (L) 0.78 Segmental A. (L) 25.5/6.2 cm/sec RI: 0.75 Segmental A. Sup (L) 21.4/5.5 cm/sec Segmental A. Mid (L) 24.1/6.9 cm/sec Segmental A. Inf (L) 25.5/6.2 cm/sec Renal Measurements Kidney Size (R) 11.3x5.8 cm Cortical Thickness (R) 1.7 cm Kidney Size (L) 11.2x8.7 cm Cortical Thickness (L) 0.9 cm Findings Study suggests no evidence of bilateral renal artery stenosis. Conclusion Study suggests no evidence of bilateral renal artery stenosis. Electronically signed by : Jefferson Qureshi MD 01/10/2020 17:20:41
--- NOTE | 2020-01-10 11:17 | P.CONPHA_ITS ---
[facility] VTE Monitoring - Patient Demographics Admission date: 01/10/20 Report Date: 01/10/20 Time: 11:17 Allergies/Adverse Reactions: Patient Allergies No Known Allergies Allergy (Verified 01/10/20 09:34) Height: 1.63 m Weight: 108.862 kg - VTE Risk Was VTE Risk Assessment Performed: Yes VTE Score: 3 VTE Risk Level: Low Risk Clinical Trial Participant: No - Prophylaxis VTE Prophylaxis Ordered?: Yes Types of VTE Prophylaxis: TEDS Knee High
--- NOTE | 2020-01-10 11:18 | HMH.PHAINT ---
HOME MEDICATION RECONCILIATION COMPLETED USING LIST FROM HOME PHARMACY IN [place], [place].
--- NOTE | 2020-01-10 13:20 | PC.NURSE ---
spoke with aSdie in office about consult
[2020-01-10 14:52] LABS: Coronavirus 19 IgG Antibody Negative (Negative); Coronavirus 19 IgM Antibody Negative (Negative)
--- NOTE | 2020-01-10 15:16 | HMH.GSCON ---
*Admission Date: 01/10/20 *Reason for consult:: Leg wound *History of present illness: Patient is a 49-year-old male with history of coronary artery disease, angina, atrial fibrillation, tobacco dependence, hypertension, renal insufficiency, history of hypertensive crisis. He was referred by the emergency department for a necrotic ulcerated area on the leg and was seen in the office 3 days ago. Patient states that [place] in [place]. He states that he may have sustained injury to the area. He has had a necrotic tender wound on the left lower lateral area for about 1 month. He had been seen in the [facility] recently and started on antibiotics and then followed up in the emergency department. It was felt that he needed to be seen relatively urgently as an outpatient for surgery for possible debridement. Of note, patient has the above-mentioned medical problems and is normally on multiple antihypertensives and Xarelto but he has not been taking these for quite some time. He quit taking his antihypertensives. He has refused Xarelto in the past. He is normally under the care of Dr. Amanuel Fuller and has seen cardiology at this institution as well. When he was seen in the office 3 days ago plan was made for tentative debridement as an outpatient today. Cardiology had been contacted and recommended he resume his antihypertensives. He presented for cardiology appointment this morning with persistent marked blood pressure elevation. After his evaluation and cardiology arrangements were made for inpatient admission for blood pressure control and pain control. Review of Systems - Review of Systems Review of systems:: pertinent systems reviewed and negative unless documented below - *Neurologic Denies dizziness, Denies fainting [facility] History Medical History: Reports:: Atrial Fibrillation, Coronary Artery Disease, Hyperlipidemia, Hypertension, Transient Ischemic Attacks (TIA) Denies:: Cancer, Diabetes Mellitus Type 1, Diabetes Mellitus Type 2, Internal Pacemaker, MRSA *Have you ever received a pneumonia vaccine?: No *Have you received a flu vaccine this season?: No Other Surgeries: Yes: No Previous Surgery, Cardiac Catheterization, Other. No: Pacemaker Amputation: No Fractures: No - *Social History Educational Level: Completed High School Smoking Status: Current every day smoker Tobacco Type: cigarettes # Packs/Day (cigarettes): 1 Alcohol Intake: never Alcohol Intake Frequency:: a few times a month Substance Use Type: denies use *Occupational Status:: unemployed Housing: other Household Members: none *Travel in the last 8 weeks: None Family Hx:: Hypertension Meds Home Medications Medication Instructions Recorded Confirmed Type carvediloL [Carvedilol 12.5mg Tab] 12.5 mg PO BID 01/10/20 01/10/20 History clindamycin HCL [Clindamycin HCl 300 mg PO Q6 01/10/20 01/10/20 History 300mg Cap] Allergies Allergy/AdvReac Type Severity Reaction Status Date / Time No Known Allergies Allergy Verified 01/10/20 09:34 Exam Vital signs and Labs for Last 24 Hours: Temp Pulse Resp BP Pulse Ox 98.4 F 54 L 18 174/110 H 99 01/10/20 10:13 01/10/20 14:00 01/10/20 14:00 01/10/20 14:00 01/10/20 10:13 Laboratory Results - last 24 hr 01/10/20 13:05: SARS-CoV-2 IgG Ab (Rapid) Negative, SARS-CoV-2 IgM Ab (Rapid) Negative I & O for Last 24 hours: Intake & Output 01/08/20 01/09/20 01/10/20 01/11/20 11:59 11:59 11:59 11:59 Weight 240 lb Narrative: He has a persistent area of necrosis on the left lateral calf area with a dry eschar. No evidence of any cellulitis. Results - Labs Laboratory Results - last 24 hr 01/10/20 13:05: SARS-CoV-2 IgG Ab (Rapid) Negative, SARS-CoV-2 IgM Ab (Rapid) Negative Assessment and Plan (1) Cellulitis of left lower extremity Current visit: No Status: Acute Category: Medical Code(s): L03.116 - Cellulitis of left lower limb (2) Hypertensive c
--- NOTE | 2020-01-10 19:19 | PC.NURSE ---
report given to sai
--- NOTE | 2020-01-10 20:24 | HMH.HP ---
*Admission Date: 01/10/20 *Chief complaint: elevated bp *History of present illness: 49-year-old white male seen in our office earlier today for evaluation prior to surgery of left lower extremity ulcer with plans for debridement. I was contacted by Dr. Alvarez on Friday with concern for the patient's blood pressure being greater than 240 systolic. Patient was restarted on his carvedilol 12.5 mg twice daily with plans to see me this a.m. Patient's blood pressure in our office was noted to be 221/127 mmHg. Patient is in quite a bit of pain with the left leg and did not take his blood pressure medicine this morning because he was following instructions to not take anything by mouth with plan for surgery this afternoon. Patient denies any chest pain, pressure or tightness. His EKG in the office was unchanged from previous tracings. Shows sinus rhythm with ST-T abnormalities in the inferior lateral leads. No acute ST segment changes noted.pt was admittted with htn crisis and will be seen by surg also [facility] History I have reviewed the patient's past medical history: Yes Medical History: Reports:: Atrial Fibrillation, Coronary Artery Disease, Hyperlipidemia, Hypertension, Transient Ischemic Attacks (TIA) Denies:: Cancer, Diabetes Mellitus Type 1, Diabetes Mellitus Type 2, Internal Pacemaker, MRSA *Have you ever received a pneumonia vaccine?: No *Have you received a flu vaccine this season?: No Other Surgeries: Yes: No Previous Surgery, Cardiac Catheterization, Other. No: Pacemaker Amputation: No Fractures: No - *Social History Educational Level: Completed High School Smoking Status: Current every day smoker Tobacco Type: cigarettes # Packs/Day (cigarettes): 1 Alcohol Intake: never Alcohol Intake Frequency:: a few times a month Substance Use Type: denies use *Occupational Status:: unemployed Housing: other Household Members: none *Travel in the last 8 weeks: None Family Hx:: Hypertension Review of Systems - Review of Systems Review of systems:: pertinent systems reviewed and negative unless documented below - Constitutional Reports fatigue, Denies fever(s) - Eyes Denies change in vision - ENT Denies sore throat - *Cardiovascular Reports shortness of breath, Denies chest pain at rest - *Respiratory Denies cough - *Gastrointestinal Denies abdominal pain - *Genitourinary Denies blood in urine - *Musculoskeletal Denies joint pain - Integumentary/Breasts Reports other (lt lower leg lesion ), Denies rash - *Neurologic Denies dizziness, Denies fainting - Psychiatric Denies depression Meds Home Medications Medication Instructions Recorded Confirmed Type carvediloL [Carvedilol 12.5mg Tab] 12.5 mg PO BID 01/10/20 01/10/20 History clindamycin HCL [Clindamycin HCl 300 mg PO Q6 01/10/20 01/10/20 History 300mg Cap] Allergies Allergy/AdvReac Type Severity Reaction Status Date / Time No Known Allergies Allergy Verified 01/10/20 09:34 Exam Vital signs and Labs for Last 24 Hours: Temp Pulse Resp BP Pulse Ox 98.6 F 65 19 170/110 H 96 01/10/20 19:37 01/10/20 19:37 01/10/20 19:37 01/10/20 19:37 01/10/20 19:37 Laboratory Results - last 24 hr 01/10/20 13:05: SARS-CoV-2 IgG Ab (Rapid) Negative, SARS-CoV-2 IgM Ab (Rapid) Negative I & O for Last 24 hours: Intake & Output 01/08/20 01/09/20 01/10/20 01/11/20 11:59 11:59 11:59 11:59 Intake Total 1115 / 1115 Output Total 450 / 450 Balance 665 / 665 Weight 240 lb - Constitutional no acute distress, obese - *Routine HEENT Exam Head: Present: normocephalic Eye: Present: EOMI, PERRL ENT: Present: mucous membranes dry - *Routine Neck Exam Present: supple. Absent: JVD - *Routine Respiratory Exam Present: CTA bilaterally - *Routine Cardiovascular Exam Present: RRR, murmur - *Routine Abdominal Exam Present: soft - *Routine Extremities Exam Absent: calf tenderness - *Routine Skin Exam
[2020-01-11] VITALS (25 sets, daily range): BP systolic 118–200; BP diastolic 60–106; PULSE 51–71; RESP 12–21; TEMP 36.3–37.1; O2SAT 88–98; BMI 41.0
--- NOTE | 2020-01-11 03:45 | PC.NURSE ---
A&OX4. PT HAS TOLERATED ROOM AIR WELL THROUGHOUT SHIFT. RESPIRATIONS REGULAR AND UNLABORED. WHEEZING SCATTERED THROUGHOUT LUNGS. NO COUGH NOTED. NONPITTING EDEMA NOTED TO LLE. ULCERATION NOTED TO LLE W BLACK TISSUE AND POTENT ODOR. +2 PULSES NOTED THROUGHOUT. NSR ON TELE. REGULAR HEART RATE. HAND LACROSSE COACH EQUAL. SOFT NONTENDER ABDOMEN. ACTIVE BOWEL SOUNDS HEARD IN ALL 4 QUADRANTS. PT HAS RESTED WELL THROUGHOUT SHIFT. PT HAS REMAINED NPO SINCE MIDNIGHT. PT RECEIVED SHOWER IN PREPARATION FOR SURGERY TODAY. PREOPERATIVE CHECKLIST COMPLETED AND ON THE CHART. PT CURRENTLY LYING IN BED. BED IN LOWEST POSITION. CALL LIGHT WITHIN REACH. VSS. NO CONCERNS AT THIS TIME. WILL CONTINUE TO MONITOR.
[2020-01-11 06:43] LABS: Basophils # 0.1 K/mm3 (0-0.2); Basophils % 0.4 % (0.1-2.0); Eosinophils # 0.3 K/mm3 (0.0-0.4); Eosinophils % 2.1 % (0.1-12.0); Hematocrit 39.8 % (42.0-52.0); Hemoglobin 13.3 g/dL (14.1-18.0); Lymphocytes # 2.2 K/mm3 (0.7-4.5); Lymphocytes % 15.7 % (10-50); Mean Corpuscular HGB Conc 33.4 g/dL (31.8-35.4); Mean Corpuscular Hemoglobin 28.3 pg (27.0-31.2); Mean Corpuscular Volume 84.9 fl (80-94); Mean Platelet Volume 9.9 fl (7.4-10.4); Monocytes # 0.8 K/mm3 (0.1-1.0); Monocytes % 5.9 % (1.7-9.3); Neutrophils # 10.4 K/mm3 (1.8-7.8); Neutrophils % 75.9 % (37.0-80.0); Platelet Count 215 K/mm3 (142-424); Red Blood Count 4.69 M/mm3 (4.60-6.20); Red Cell Distribution Width 14.1 % (11.5-17.5); White Blood Count 13.7 K/mm3 (4.8-10.8)
[2020-01-11 06:51] LABS: Chloride 108 mmol/L (98-107); Sodium 135 mmol/L (136-145)
[2020-01-11 06:54] LABS: Blood Urea Nitrogen 34 mg/dl (9-20); Calcium 9.1 mg/dl (8.4-10.2); Carbon Dioxide 19 mmol/L (22.0-30.0); Creatinine Clearance Estimated 30 mL/min (50-200); Estimated Glomerular Filt Rate 28 ml/min (>60); GFR (African American) 33 ML/MIN (>60); Glucose 92 mg/dl (74-100)
--- NOTE | 2020-01-11 08:11 | P.PN_ITS ---
Subjective Date: 01/11/20 Time: 08:11 Principal diagnosis: HTN crisis, necrotic eschar Interval history: 49 yo WM in bed in NAD. Complains of pain in leg. Telemetry showed brief 7 beat run of Vtach this AM at 150 bpm. Pt was unaware of this and may have been asleep. BP improved but still elevated. Exam Vital signs and Labs for Last 24 Hours: Temp Pulse Resp BP Pulse Ox 98.6 F 57 L 18 200/102 H 98 01/11/20 07:50 01/11/20 07:50 01/11/20 07:50 01/11/20 07:50 01/11/20 07:50 Laboratory Results - last 24 hr 01/10/20 13:05: SARS-CoV-2 IgG Ab (Rapid) Negative, SARS-CoV-2 IgM Ab (Rapid) Negative 01/11/20 06:06: WBC 13.7 H, RBC 4.69, Hgb 13.3 L, Hct 39.8 L, MCV 84.9, MCH 28.3, MCHC 33.4, RDW 14.1, Plt Count 215, MPV 9.9, Neut % (Auto) 75.9, Lymph % (Auto) 15.7, [place] % (Auto) 5.9, Eos % (Auto) 2.1, Baso % (Auto) 0.4, Neut # (Auto) 10.4 H, Lymph # (Auto) 2.2, [place] # (Auto) 0.8, Eos # (Auto) 0.3, Baso # (Auto) 0.1 01/11/20 06:06: Sodium 135 L, Potassium 4.0, Chloride 108 H, Carbon Dioxide 19 L , Anion Gap 12.0, BUN 34 H, Creatinine 2.50 H, Estimated Creat Clear 30, Estimated GFR 28 L, Est GFR ( Amer) 33 L, Glucose 92, Calcium 9.1 I & O for Last 24 hours: Intake & Output 01/08/20 01/09/20 01/10/20 01/11/20 11:59 11:59 11:59 11:59 Intake Total 1545 / 1545 Output Total 1800 / 1800 Balance -255 / -255 Weight 240 lb 240 lb 6 oz - *Routine Respiratory Exam Present: CTA bilaterally. Absent: accessory muscle use, rales, rhonchi, wheezes - *Routine Cardiovascular Exam Present: RRR. Absent: murmur, gallop, rubs - *Routine Neurological Exam Present: alert, oriented X3, moving all extremities Progress Note: A&P (1) Cellulitis of left lower extremity Status: Acute Current Visit: No (2) Hypertensive crisis Status: Acute Current Visit: No (3) Malignant hypertension Status: Acute Current Visit: No (4) Tobacco use Status: Acute Current Visit: No (5) Wound of left lower extremity Status: Acute Current Visit: No (6) Abnormal ECG Status: Chronic Current Visit: No (7) CAD (coronary artery disease) Status: Chronic Current Visit: No (8) Diastolic dysfunction Status: Chronic Current Visit: No (9) HLD (hyperlipidemia) Status: Chronic Current Visit: No (10) Tobacco dependence syndrome Status: Chronic Current Visit: No (11) Obesity Status: Acute Current Visit: Yes (12) Non-sustained ventricular tachycardia Status: Acute Current Visit: Yes Assessment and Plan for All Diagnoses:: 1. HTN crisis, improved but not to goal (sustained SBP <180 mm Hg), therefore will add minoxidil 10 mg daily. Pt can proceed with surgery later today as planned. Continue coreg and amlodipine. Official echo results show LVEF of 40- 50% with moderate conc LVH and global hypokinesis with mild MR and mild aortic root dilatation of 4.0 cm. 2. Mild to moderate CAD by cath, 2018. Clinically stable. 3. Necrotic eschar of left leg, per surgery. 4. Brief NSVTach, continue coreg. Will need sleep study as outpatient to look for YE as possible etiology due to snoring. 5. CKD, stage 3-4, improved overnight with Cr 2.5 now. Unable to add YASMIN or ARB at this time. 6. Medication non-compliance
--- NOTE | 2020-01-11 08:37 | HMH.ACPN2 ---
Internal Medicine - PN: Subj *Date: 01/11/20 *Time: 08:43 Interval history: 49-year-old male patient resting in bed quietly cardiology has seen this morning and recommends: 1. HTN crisis, improved but not to goal (sustained SBP <180 mm Hg), therefore will add minoxidil 10 mg daily. Pt can proceed with surgery later today as planned. Continue coreg and amlodipine. Official echo results show LVEF of 40-50% with moderate conc LVH and global hypokinesis with mild MR and mild aortic root dilatation of 4.0 cm. 2. Mild to moderate CAD by cath, 2018. Clinically stable. 3. Necrotic eschar of left leg, per surgery. 4. Brief NSVTach, continue coreg. Will need sleep study as outpatient to look for YE as possible etiology due to snoring. 5. CKD, stage 3-4, improved overnight with Cr 2.5 now. Unable to add YASMIN or ARB at this time. 6. Medication non-compliance Tentative surgical debridement pending today, discussed this with patient and he is in agreement Exam Vital signs and Labs for Last 24 Hours: Temp Pulse Resp BP Pulse Ox 98.6 F 57 L 18 200/102 H 98 01/11/20 07:50 01/11/20 07:50 01/11/20 07:50 01/11/20 07:50 01/11/20 07:50 Laboratory Results - last 24 hr 01/10/20 13:05: SARS-CoV-2 IgG Ab (Rapid) Negative, SARS-CoV-2 IgM Ab (Rapid) Negative 01/11/20 06:06: WBC 13.7 H, RBC 4.69, Hgb 13.3 L, Hct 39.8 L, MCV 84.9, MCH 28.3, MCHC 33.4, RDW 14.1, Plt Count 215, MPV 9.9, Neut % (Auto) 75.9, Lymph % (Auto) 15.7, [place] % (Auto) 5.9, Eos % (Auto) 2.1, Baso % (Auto) 0.4, Neut # (Auto) 10.4 H, Lymph # (Auto) 2.2, [place] # (Auto) 0.8, Eos # (Auto) 0.3, Baso # (Auto) 0.1 01/11/20 06:06: Sodium 135 L, Potassium 4.0, Chloride 108 H, Carbon Dioxide 19 L, Anion Gap 12.0, BUN 34 H, Creatinine 2.50 H, Estimated Creat Clear 30, Estimated GFR 28 L, Est GFR ( Amer) 33 L, Glucose 92, Calcium 9.1 I & O for Last 24 hours: Intake & Output 01/08/20 01/09/20 01/10/20 01/11/20 23:59 23:59 23:59 23:59 Intake Total 1115 / 1115 430 / 430 Output Total 950 / 1300 850 / 850 Balance 165 / -185 -420 / -420 Weight 240 lb 240 lb 6 oz - Constitutional no acute distress - *Routine HEENT Exam Head: Present: normocephalic ENT: Present: mucous membranes moist - *Routine Neck Exam Present: full ROM, trachea midline. Absent: JVD - *Routine Respiratory Exam Present: decreased breath sounds. Absent: accessory muscle use - *Routine Cardiovascular Exam Present: RRR - *Routine Abdominal Exam Present: soft, normoactive bowel sounds. Absent: tenderness - *Routine Extremities Exam Present: full ROM, pulses intact - Routine Back/Spine/Pelvis Exam Back/Spine: Present: full ROM - *Routine Skin Exam Present: wounds Comments: Black necrotic area left lower calf outer aspect - *Routine Neurological Exam Present: alert, oriented X3 - Routine Psychiatric Exam Present: normal affect Assessment and Plan (1) Cellulitis of left lower extremity Current visit: No Status: Acute Category: Medical Code(s): L03.116 - Cellulitis of left lower limb (2) Hypertensive crisis Current visit: No Status: Acute Category: Medical Code(s): I16.9 - Hypertensive crisis, unspecified (3) Malignant hypertension Current visit: No Status: Acute Category: Medical Code(s): I10 - Essential (primary) hypertension (4) Tobacco use Current visit: No Status: Acute Category: Social Hx Code(s): Z72.0 - Tobacco use (5) Wound of left lower extremity Current visit: No Status: Acute Qualifiers: Encounter type: initial encounter Qualified Code(s): S81.802A - Unspecified open wound, left lower leg, initial encounter Category: Medical Code(s): S81.802A - Unspecified open wound, left lower leg, initial encounter (6) Abnormal ECG Current visit: No Status: Chronic Category: Medical Code(s): R94.31 - Abnormal electrocardiogram [ECG] [EKG] (7) CAD (coronary artery disease) Current visit: No Sta
--- NOTE | 2020-01-11 10:24 | P.OP_ITS ---
Date of procedure: 01/11/20 Pre-op Diagnosis:: Necrotic foul-smelling wound on the left lower extremity Post-op Diagnosis:: Same Procedure performed:: Debridement of skin and subcutaneous tissues Surgeon:: Cirilo Alvarez MD [employer] HELPER:: Jayson Mills Anesthesia: LMA Estimated blood loss (mL): 5 Operative findings:: He had full-thickness necrosis of the scan which was extremely foul-smelling. There was some purulent material underneath the eschar. Operative note:: Patient was taken to the operating room. He was positioned in a supine position. General anesthesia was induced via LMA. Area was prepped and draped in the standard surgical fashion. Using 15 blade the eschar was raised carefully. There was some underlying necrotic purulent material which was sent for culture. After the dry eschar was removed the underlying skin and subcutaneous tissues which were necrotic were carefully debrided using sharp scalpel dissection to healthy tissues. There was good hemostasis. Wound measured approximately 4 x 4.5 cm. Local anesthetic was infiltrated. Wound was packed with a saline moistened 4 x 4 gauze and covered with clean dry sterile dressing. Condition: stable Disposition: PACU Specimens:: Debrided tissue Complications:: None immediately apparent
--- NOTE | 2020-01-11 10:32 | HMH.ANESCL ---
[facility] Anesthesia Checklist - Structural Data Admitted From: Inpatient Planned Operative Procedure/s: i/d lle Consent for Planned Operative Procedure(s) Verified: Yes - Airway Assessment C-Spine Mobility Assessed: Yes TMJ Mobility Assessed: Yes Dentition: Poor Dentition - Neurological Assessment Level of Consciousness: Awake, Alert, Appropriate - Anesthesia Plan Anesthesia Risk discussed: Yes Anesthesia Plan: Verified ASA Class: III Anesthesia Type: General [facility] History I have reviewed the patient's past medical history: Yes Medical History: Reports:: Atrial Fibrillation, Coronary Artery Disease, Hyperlipidemia, Hypertension, Transient Ischemic Attacks (TIA) Denies:: Cancer, Diabetes Mellitus Type 1, Diabetes Mellitus Type 2, Internal Pacemaker, MRSA *Have you ever received a pneumonia vaccine?: No *Have you received a flu vaccine this season?: No Anesthesia experience/problems:: none Other Surgeries: Yes: No Previous Surgery, Cardiac Catheterization, Other. No: Pacemaker Amputation: No Fractures: No - *Social History Educational Level: Completed High School Smoking Status: Current every day smoker Tobacco Type: cigarettes # Packs/Day (cigarettes): 1 Alcohol Intake: never Alcohol Intake Frequency:: a few times a month Substance Use Type: denies use *Occupational Status:: unemployed Housing: other Household Members: none *Travel in the last 8 weeks: None Family Hx:: Hypertension
--- NOTE | 2020-01-11 10:33 | P.PN_ITS ---
[facility] Anesthesia Record Part I Intake, IV Amount: 500 Estimated blood loss (mL): 0 Urine output (mL): 0 Blood Pressure: 120/86 SaO2: 90 Pulse Rate: 55 Respiratory Rate: 12 Temperature: 97.5 F Patient is:: Awake, Stable Stable to PACU at:: 10:25
--- NOTE | 2020-01-11 12:47 | SW/DCPLANNER ---
Addendum entered by Anisa Norman 01/13/20 09:23: Tarsha has called and stated that this patient has been approved and services will begin before noon today. Patient discharged home yesterday. Addendum entered by Anisa Norman 01/12/20 13:38: Tarsha from [facility] has stated that patient information has been reviewed and faxed into insurance. Tarsha will follow back up with me once they hear back from insurance. Patients nurse (Tripp) has stated that she will complete dressing change prior to discharge and instruct patient. Patient will discharge home today. Addendum entered by Anisa Norman 01/12/20 10:15: I have received a home health order for this patient. Patient understands that he will need BID dressing changes. Patient stated that he will have family/friends to assist him with dressing changes. Patient is also agreeable to home health services. Patient resides in [place] [place] and is agreeable to [facility]. Patient information has been faxed to [facility]. I will follow up once patient information is reviewed. Patient will discharge home later today. Original Note: I have spoke with this patients brother (Roe) regarding discharge plans. Roe has stated that this patient lives at home alone and cares for himself. Roe has stated that patient can: cook, cleans, bathes himself. Roe has stated that patient, himself and several other family members all live within the same area and could assist patient at home if needed. Discharge date is unknown for this patient at this time. I will follow up with patient prior to discharge once orders are known.
--- NOTE | 2020-01-11 19:54 | PC.NURSE ---
pt has done great since surgery. states all his pain from before surgery is gone. his dressing is CDI. vss. will cont. to monitor.
--- NOTE | 2020-01-11 20:12 | PC.NURSE ---
nurse made aware of blood pressure and heart rate
[2020-01-12] VITALS: PULSE 60
[2020-01-12 04:00] VITALS: BP 146/85; PULSE 50; PULSE 61; RESP 22; TEMP 36.7; O2SAT 98
[2020-01-12 04:53] VITALS: BMI 41.4
--- NOTE | 2020-01-12 05:06 | PC.NURSE ---
A&OX4 Pt BP has continue to be elevated but did decreased after 2100 BP meds. Pt denies any headache or visual disturbance. Pt premedicated per MAR for dressing change. Pt tolerated fair during packing of wound. Pt anxious to go home this AM, but concerned about doing dressing change at home.
[2020-01-12 06:45] LABS: Chloride 105 mmol/L (98-107); Sodium 135 mmol/L (136-145)
[2020-01-12 06:48] LABS: Blood Urea Nitrogen 47 mg/dl (9-20); Creatinine Clearance Estimated 28 mL/min (50-200); Estimated Glomerular Filt Rate 25 ml/min (>60); GFR (African American) 31 ML/MIN (>60)
[2020-01-12 06:49] LABS: Calcium 9.1 mg/dl (8.4-10.2); Carbon Dioxide 20 mmol/L (22.0-30.0); Glucose 132 mg/dl (74-100)
[2020-01-12 07:06] LABS: Basophils % 0.2 % (0.1-2.0); Eosinophils % 0.2 % (0.1-12.0); Hematocrit 38.2 % (42.0-52.0); Lymphocytes # 1.7 K/mm3 (0.7-4.5); Lymphocytes % 10.2 % (10-50); Mean Corpuscular HGB Conc 33.9 g/dL (31.8-35.4); Mean Corpuscular Hemoglobin 28.9 pg (27.0-31.2); Mean Corpuscular Volume 85.3 fl (80-94); Mean Platelet Volume 10.2 fl (7.4-10.4); Monocytes # 0.8 K/mm3 (0.1-1.0); Neutrophils # 13.7 K/mm3 (1.8-7.8); Neutrophils % 84.4 % (37.0-80.0); Platelet Count 251 K/mm3 (142-424); Red Blood Count 4.48 M/mm3 (4.60-6.20); Red Cell Distribution Width 14.3 % (11.5-17.5); White Blood Count 16.2 K/mm3 (4.8-10.8)
[2020-01-12 07:08] LABS: MANUAL DIFFERENTIAL MANUAL DIFFERENTIAL (MANUAL DIFF)
[2020-01-12 08:00] VITALS: BP 166/97; PULSE 61; PULSE 74; RESP 17; TEMP 36.6; O2SAT 97
--- NOTE | 2020-01-12 09:39 | P.PN_ITS ---
[facility] Anesthesia Record Part II Discharge Time: 10:55 Destination: [facility] PACU nurse assessment reviewed?: Yes Patient Condition:: Good Anesthesia Complications:: None Swallowing reflex intact?: Yes Cyanosis?: No Blood Pressure: 122/85 Pulse Rate: 58 Temperature: 97.7 F Mental Status: Alert & Oriented Pain level:: 4 Nausea and/or vomitting:: None Intake, IV Amount: 800
--- NOTE | 2020-01-12 09:39 | HMH.PNCARD ---
Subjective Date: 01/12/20 Time: 09:39 Principal diagnosis: HTN crisis, necrotic eschar Interval history: This is a 49-year-old gentleman who was admitted to the hospital for a hypertensive crisis. His blood pressure has improved at this point. Today he denies any chest pain, pressure, shortness of breath, edema. He denies any fever, chills, nausea, vomiting, diarrhea, PND or orthopnea. He does have a dressing to his left leg which he did undergo surgical intervention on yesterday. He states that his leg is much better. He is able to sleep now and not having near as much pain. Exam Vital signs and Labs for Last 24 Hours: Temp Pulse Resp BP Pulse Ox 97.9 F 61 17 166/97 H 97 01/12/20 08:00 01/12/20 08:00 01/12/20 08:00 01/12/20 08:00 01/12/20 08:00 Laboratory Results - last 24 hr 01/12/20 05:55: WBC 16.2 H, RBC 4.48 L, Hgb 13.0 L, Hct 38.2 L, MCV 85.3, MCH 28.9, MCHC 33.9, RDW 14.3, Plt Count 251, MPV 10.2, Neut % (Auto) 84.4 H, Lymph % (Auto) 10.2, [place] % (Auto) 5.0, Eos % (Auto) 0.2, Baso % (Auto) 0.2, Neut # (Auto) 13.7 H, Lymph # (Auto) 1.7, [place] # (Auto) 0.8, Eos # (Auto) 0.0, Baso # (Auto) 0.0 01/12/20 05:55: Sodium 135 L, Potassium 4.0, Chloride 105, Carbon Dioxide 20 L, Anion Gap 14.0, BUN 47 H D, Creatinine 2.70 H, Estimated Creat Clear 28, Estimated GFR 25 L, Est GFR ( Amer) 31 L, Glucose 132 H D, Calcium 9.1 I & O for Last 24 hours: Intake & Output 01/09/20 01/10/20 01/11/20 01/12/20 23:59 23:59 23:59 23:59 Intake Total 1115 / 1115 1770 / 1770 840 / 840 Output Total 950 / 1300 1900 / 1900 950 / 950 Balance 165 / -185 -130 / -130 -110 / -110 Weight 240 lb 240 lb 6 oz 242 lb 9 oz Microbiology Reports for the Last 24 Hours: Microbiology 01/11/20 10:02 Leg,Left - Wound Gram Stain - Final 01/11/20 10:02 Leg,Left - Wound Wound Culture - Preliminary Narrative: Telemetry strip shows sinus rhythm with a rate of 56. - Constitutional no acute distress, morbidly obese - *Routine HEENT Exam Head: Present: normocephalic, atraumatic Eye: Present: EOMI, PERRL ENT: Present: mucous membranes moist - *Routine Neck Exam Present: supple, full ROM, normal carotid upstroke. Absent: JVD, carotid bruit, lymphadenopathy - *Routine Respiratory Exam Present: CTA bilaterally - *Routine Cardiovascular Exam Present: RRR, Normal S1, Normal S2. Absent: murmur, gallop - *Routine Abdominal Exam Present: soft, normoactive bowel sounds. Absent: tenderness, distended - *Routine Extremities Exam Present: full ROM, pulses intact. Absent: cyanosis, clubbing, edema - *Routine Skin Exam Present: intact (Except to the left lower extremity where dressing is intact.), warm. Absent: rash - *Routine Neurological Exam Present: alert, oriented X3, CN II-XII intact. Absent: sensory deficit, motor deficit Progress Note: A&P (1) Cellulitis of left lower extremity Status: Acute Current Visit: No (2) Hypertensive crisis Status: Acute Current Visit: No (3) Malignant hypertension Status: Acute Current Visit: No (4) Tobacco use Status: Acute Current Visit: No (5) Wound of left lower extremity Status: Acute Current Visit: No (6) Abnormal ECG Status: Chronic Current Visit: No (7) CAD (coronary artery disease) Status: Chronic Current Visit: No (8) Diastolic dysfunction Status: Chronic Current Visit: No (9) HLD (hyperlipidemia) Status: Chronic Current Visit: No (10) Tobacco dependence syndrome Status: Chronic Current Visit: No (11) Obesity Status: Acute Current Visit: Yes (12) Non-sustained ventricular tachycardia Status: Acute Current Visit: Yes (13) SIRS with acute organ dysfunction due to infectious process Status: Acute Current Visit: Yes Assessment and Plan for All Diagnoses:: Plan: 1. The patient was admitted to the hospital for hypertensive crisis. His carvedilol has been adjusted. He is on Norvas
[2020-01-12 09:40] VITALS: BP 122/85; PULSE 58; TEMP 36.5
[2020-01-12 09:55] LABS: Lymphocytes % 12 % (10-50); Monocytes % 1 % (2-9); Neutrophils % 87 % (42-76); Total Cells Counted 100
[2020-01-12 09:56] LABS: Platelet Estimate Normal; RBC Morphology Normal
[2020-01-12 10:41] VITALS: BMI 41.3
--- NOTE | 2020-01-12 11:50 | HMH.DCSUM ---
General - General Admission date:: 01/10/20 Discharge date: 01/12/20 HPI HPI: 49-year-old white male seen in our office earlier today for evaluation prior to surgery of left lower extremity ulcer with plans for debridement. I was contacted by Dr. Alvarez on Friday with concern for the patient's blood pressure being greater than 240 systolic. Patient was restarted on his carvedilol 12.5 mg twice daily with plans to see me this a.m. Patient's blood pressure in our office was noted to be 221/127 mmHg. Patient is in quite a bit of pain with the left leg and did not take his blood pressure medicine this morning because he was following instructions to not take anything by mouth with plan for surgery this afternoon. Patient denies any chest pain, pressure or tightness. His EKG in the office was unchanged from previous tracings. Shows sinus rhythm with ST-T abnormalities in the inferior lateral leads. No acute ST segment changes noted.pt was admittted with htn crisis and will be seen by surg also Hospital Course Hospital Course: pt was admitted and was seen by card - Malignant hypertension A. Echocardiogram, 02/2018, enlarged left atrium, normal LV size, moderate concentric LVH with EF of 50%. No regional wall motion abnormality. Grade 1 diastolic dysfunction. Mild MR and TR. 2. Coronary artery disease A. Abnormal high risk stress test with appearance of nontransmural W[place] involving inferior wall with partial reversibility in the apex and previous nontransmural [place] involving anterior wall with associated regional wall motion abnormality. 03/2018 B. Cardiac catheterization 04/13/2018 showed mild to moderate two-[id number]-[id number] coronary artery disease of the LAD, ramus, circumflex and RCA. 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 Normal left ventricular ejection fraction with LVEDP 15 mmHg 3. Ongoing tobacco use 4. Left lower extremity ulcer/cellulitis 5. Chronic kidney disease, stage III-IV A. Creatinine 2.1-3.1 with GFR 22-33 by labs from 02/2019 and 01/01/2020 6. Paroxysmal atrial fibrillation, 02/2019 A. Previously prescribed Xarelto therapy but patient is noncompliant 7. Medication noncompliance complicates all aspects of care. History of present illness: 49-year-old white male seen in our office earlier today for evaluation prior to surgery of left lower extremity ulcer with plans for debridement. I was contacted by Dr. Alvarez on Friday with concern for the patient's blood pressure being greater than 240 systolic. Patient was restarted on his carvedilol 12.5 mg twice daily with plans to see me this a.m. Patient's blood pressure in our office was noted to be 221/127 mmHg. Patient is in quite a bit of pain with the left leg and did not take his blood pressure medicine this morning because he was following instructions to not take anything by mouth with plan for surgery this afternoon. Patient denies any chest pain, pressure or tightness. His EKG in the office was unchanged from previous tracings. Shows sinus rhythm with ST-T abnormalities in the inferior lateral leads. No acute ST segment changes noted. I discussed with the patient the option of being admitted to the hospital due to his markedly elevated blood pressure for better control and potentially undergoing surgery tomorrow. We could also achieve some pain control in the interim. He did agree with this. I spoke with Dr. Fuller and Dr. Alvarez Hypertensive crisis. Admit for aggressive medical treatment with plans to proceed with surgical debridement of LLE ulcer tomorrow. Will get echo and renal duplex today to confirm preserved LVEF and to assess for renal artery stenosis or renal masses in setting of malignant HTN. Will increase coreg to 25 mg BID and start amlodipine 10 mg BID. 2. LLE ulcer, treatment per Dr. Fuller and Dr. Alvarez 3. CAD, mild to moderate by [facility], 2018. CLinically stable. 4. CKD, stage 3
[2020-01-12 12:00] VITALS: PULSE 65
--- NOTE | 2020-01-12 13:54 | HMH.PHAINT ---
PATIENT COUNSELED ON NEW MEDICATIONS: ISORDIL, BACTRIM DS, CARVEDILOL (INCREASE IN DOSE), MINOXIDIL, AND AMLODIPINE. THE PATIENT WAS ALSO COUNSELED TO CONTINUE CLINDAMYCIN AND DISCONTINUE CARVEDILOL 12.5 MG. THE PATIENT DID NOT HAVE ANY QUESTIONS.
--- NOTE | 2020-01-12 14:16 | PC.NURSE ---
THIS RN REMOVED OLD DRESSING, SCANT AMOUNT OF SEROSANGUINEOUS DRAINAGE, CLEANED WOUND WITH SALINE SOLUTION, PACKED WITH WET ROLL GAUZE, COVERED WITH 4X4 GAUZE AND SECURED WITH COBAN. THIS RN WENT THRU STEP BY STEP WITH PATIENT AND PATIENT'S NEPHEW HOW TO PROVIDED WOUND CARE BID. THIS RN PROVIDED D/C INSTRUCTIONS, PHARMACY PROVIDED MEDICATION EDUCATION. PATIENT A&O X4, LUNGS CLEAR, SKIN RASH THROUGHOUT. THIS RN INQUIRED ABOUT RASH, PATIENT STATED IT WAS A REACTION TO SOMETHING HE DID AT HOME. PATIENT HAS EXTREMELY LONG AND THICK FINGER NAILS, YELLOW AND BROWN IN COLOR. NO OTHER CONCERNS AT THIS TIME.
== END 2020-01-12 13:55 | disposition home health service (06) | DRG 987 ==
PROVIDERS: Nurse Practitioner Family; Surgery; Admitting Provider Emergency Medicine; PCP Emergency Medicine; Visit Provider Emergency Medicine
PROC: 0J9P0ZZ Drainage of Left Lower Leg Subcutaneous Tissue and Fascia, Open Approach (ICD-10-PCS; principal; 2020-01-11 12:45)
DX: I13.0 Hypertensive heart and chronic kidney disease with heart failure and stage 1 through stage 4 chronic kidney disease, or unspecified chronic kidney disease (principal); R65.11 Systemic inflammatory response syndrome (SIRS) of non-infectious origin with acute organ dysfunction; I50.30 Unspecified diastolic (congestive) heart failure; Z68.41 Body mass index [BMI] 40.0-44.9, adult; L03.116 Cellulitis of left lower limb; I16.9 Hypertensive crisis, unspecified; Z72.0 Tobacco use; N18.3 Chronic kidney disease, stage 3 (moderate); T45.516A Underdosing of anticoagulants, initial encounter; Z91.128 Patient's intentional underdosing of medication regimen for other reason; I25.10 Atherosclerotic heart disease of native coronary artery without angina pectoris; I48.0 Paroxysmal atrial fibrillation; E78.5 Hyperlipidemia, unspecified; E66.01 Morbid (severe) obesity due to excess calories; B96.1 Klebsiella pneumoniae [K. pneumoniae] as the cause of diseases classified elsewhere; B96.4 Proteus (mirabilis) (morganii) as the cause of diseases classified elsewhere
CPT/HCPCS: 11042; 36415; 80048; 85007; 85025; 86328; 87040; 87070; 87075; 87077; 87186; 87205; 88304; 93306; 93976; J2405

== ENCOUNTER 2020-01-25 10:44 | Outpatient (CLI) | payer BC, SELFPAY ==
--- NOTE | 2020-01-25 11:41 | PC.NURSE ---
1035 arrived; pt stated that the wound has been hurting allnight. cobane was on top of the kerlix. the dressing was tight to skin; once dressing was removed packing was noted. i removed the packing and maggots were noted. covered the wound back up and md was called. it was noted that yesterday there was numerous tiny maggots noted; md came to look at dressing; md thoroughly cleaned the wound with Dakins solution. i then packed wound and covered with kerlix and cobane.. pt was instructed to come back tomorrow;
== END 2020-01-25 11:05 | disposition home or self-care (01) ==
LOC: INF 10:44
PROVIDERS: Visit Provider Surgery
DX: S81.802A Unspecified open wound, left lower leg, initial encounter (principal); Z48.01 Encounter for change or removal of surgical wound dressing
CPT/HCPCS: G0463

== ENCOUNTER 2020-01-26 10:33 | Outpatient (CLI) | payer BC, SELFPAY | END 2020-01-26 10:45 | disposition home or self-care (01) | LOC: INF 10:33 | PROVIDERS: Visit Provider Internal Medicine Adolescent Medicine | DX: L03.116 Cellulitis of left lower limb (principal) | CPT/HCPCS: G0463 ==

== ENCOUNTER 2020-01-27 11:14 | Outpatient (CLI) | payer BC, SELFPAY | END 2020-01-27 11:25 | disposition home or self-care (01) | LOC: INF 11:14 | PROVIDERS: PCP Emergency Medicine; Visit Provider Surgery | DX: L03.116 Cellulitis of left lower limb (principal); Z48.00 Encounter for change or removal of nonsurgical wound dressing | CPT/HCPCS: G0463 ==

== ENCOUNTER 2020-01-28 10:20 | Outpatient (CLI) | payer BC, SELFPAY | END 2020-01-28 10:55 | disposition home or self-care (01) | LOC: INF 10:49 | PROVIDERS: Visit Provider Surgery | DX: L03.116 Cellulitis of left lower limb (principal) | CPT/HCPCS: G0463 ==

== ENCOUNTER 2020-01-29 09:57 | Outpatient (CLI) | payer BC, SELFPAY ==
[2020-01-29 10:31] VITALS: BP 191/131; PULSE 63; RESP 16; TEMP 36.3; O2SAT 97
[2020-01-29 10:39] VITALS: BMI 42.9
--- NOTE | 2020-01-29 10:58 | PC.NURSE ---
Patients B/P elevated. I recommended that i take patient by wheelchair down to ER to be checked out. Pt refused saying Ill just leave then . Pt was educated on dangers of elevated BP and he stated he was going to see Dr Fuller on Friday.
[2020-01-29 10:59] VITALS: BP 208/122; PULSE 65; RESP 18; O2SAT 98
--- NOTE | 2020-01-29 11:04 | PC.NURSE ---
Print out on hypertension given to patient, I tried to convince him again to go to the ER but patient again refused.
== END 2020-01-29 11:02 | disposition home or self-care (01) ==
LOC: INF 09:58
PROVIDERS: PCP Emergency Medicine; Visit Provider Surgery
DX: L03.116 Cellulitis of left lower limb (principal); Z48.00 Encounter for change or removal of nonsurgical wound dressing
CPT/HCPCS: G0463

== ENCOUNTER → 2020-01-30 18:15 | Outpatient (CLI) | payer BC, SELFPAY ==
[2020-01-30 18:40] VITALS: BP 145/94; PULSE 70; RESP 15; TEMP 36.9; O2SAT 94
== END ==
PROVIDERS: PCP Emergency Medicine; Visit Provider Surgery
DX: L03.116 Cellulitis of left lower limb (principal); Z48.01 Encounter for change or removal of surgical wound dressing
CPT/HCPCS: G0463

== ENCOUNTER 2020-01-31 09:48 | Outpatient (CLI) | payer BC, SELFPAY | END 2020-01-31 10:34 | disposition home or self-care (01) | LOC: INF 09:48 | PROVIDERS: Visit Provider Surgery | DX: L03.116 Cellulitis of left lower limb (principal); Z48.01 Encounter for change or removal of surgical wound dressing | CPT/HCPCS: G0463 ==

== ENCOUNTER → 2020-02-01 22:32 | Outpatient (CLI) | payer BC, SELFPAY ==
--- NOTE | 2020-02-01 23:00 | PC.NURSE ---
Patient here for dressing change, Old dressing falling off Left lower extremity, Moderate amount of brown colored drainage. Wound bed beefy red with yellowish green tissue present scattered through out wound, Redness around edges. Site cleaned with normal saline and wet to dry applied. Dakins solution not available at this time. Patient stated he would be returning tomorrow for dressing changed. He needed it covered for the night.
[2020-02-01 23:17] VITALS: BMI 42.9
[2020-02-01 23:28] VITALS: BP 189/110; PULSE 70; RESP 16; TEMP 37.2; O2SAT 98
[2020-02-01 23:30] VITALS: BP 189/110; PULSE 70; RESP 16; TEMP 37.2; O2SAT 98
== END ==
PROVIDERS: PCP Emergency Medicine; Visit Provider Surgery
DX: S81.802A Unspecified open wound, left lower leg, initial encounter (principal); L02.91 Cutaneous abscess, unspecified; Z48.01 Encounter for change or removal of surgical wound dressing
CPT/HCPCS: G0463

== ENCOUNTER 2020-02-02 15:24 | Outpatient (CLI) | payer BC, SELFPAY | END 2020-02-02 15:45 | disposition home or self-care (01) | LOC: INF 15:47 | PROVIDERS: Visit Provider Surgery | DX: L03.116 Cellulitis of left lower limb (principal) | CPT/HCPCS: G0463 ==

== ENCOUNTER 2020-02-03 12:03 | Outpatient (CLI) | payer BC, SELFPAY | END 2020-02-03 12:20 | disposition home or self-care (01) | LOC: INF 12:03 | PROVIDERS: Visit Provider Surgery | DX: L03.116 Cellulitis of left lower limb (principal); Z48.01 Encounter for change or removal of surgical wound dressing | CPT/HCPCS: G0463 ==

== ENCOUNTER 2020-02-04 13:35 | Outpatient (CLI) | payer BC, SELFPAY | END 2020-02-04 13:50 | disposition home or self-care (01) | LOC: INF 13:35 | PROVIDERS: Visit Provider Surgery | DX: L03.116 Cellulitis of left lower limb (principal); Z48.01 Encounter for change or removal of surgical wound dressing | CPT/HCPCS: G0463 ==

== ENCOUNTER → 2020-02-05 14:22 | Outpatient (CLI) | payer BC, SELFPAY ==
[2020-02-05 14:45] VITALS: BP 148/84; PULSE 74; RESP 16; TEMP 36.8; O2SAT 95; BMI 41.5
[2020-02-05 15:00] VITALS: BP 152/80; PULSE 75; RESP 16; O2SAT 95
== END ==
PROVIDERS: PCP Emergency Medicine; Visit Provider Surgery
DX: L03.116 Cellulitis of left lower limb (principal); Z48.01 Encounter for change or removal of surgical wound dressing
CPT/HCPCS: G0463

== ENCOUNTER → 2020-02-06 11:11 | Outpatient (CLI) | payer BC, SELFPAY ==
[2020-02-06 11:15] VITALS: BP 160/89; PULSE 78; RESP 20; TEMP 36.9; O2SAT 98; BMI 41.5
== END ==
PROVIDERS: PCP Emergency Medicine; Visit Provider Surgery
DX: L03.116 Cellulitis of left lower limb (principal); Z48.01 Encounter for change or removal of surgical wound dressing
CPT/HCPCS: G0463

== ENCOUNTER 2020-02-07 13:41 | Outpatient (CLI) | payer BC, SELFPAY | END 2020-02-07 13:45 | disposition home or self-care (01) | LOC: INF 13:41 | PROVIDERS: Visit Provider Surgery | DX: L03.116 Cellulitis of left lower limb (principal); Z48.01 Encounter for change or removal of surgical wound dressing | CPT/HCPCS: G0463 ==

== ENCOUNTER 2020-02-08 10:15 | Outpatient (CLI) | payer BC, SELFPAY | END 2020-02-08 10:30 | disposition home or self-care (01) | LOC: INF 10:20 | PROVIDERS: Visit Provider Surgery | DX: L03.116 Cellulitis of left lower limb (principal); Z48.01 Encounter for change or removal of surgical wound dressing | CPT/HCPCS: G0463 ==

== ENCOUNTER 2020-02-10 11:37 | Outpatient (CLI) | payer BC, SELFPAY | END 2020-02-10 12:00 | disposition home or self-care (01) | LOC: INF 11:37 | PROVIDERS: Visit Provider Surgery | DX: L03.116 Cellulitis of left lower limb (principal); Z48.01 Encounter for change or removal of surgical wound dressing | CPT/HCPCS: G0463 ==

== ENCOUNTER 2020-02-11 12:34 | Outpatient (CLI) | payer BC, SELFPAY | END 2020-02-11 12:56 | disposition home or self-care (01) | LOC: INF 12:34 | PROVIDERS: Visit Provider Surgery | DX: L03.116 Cellulitis of left lower limb (principal); Z48.01 Encounter for change or removal of surgical wound dressing | CPT/HCPCS: G0463 ==

== ENCOUNTER 2020-02-12 17:29 | Outpatient (CLI) | payer BC, SELFPAY ==
[2020-02-12 18:01] VITALS: BP 190/110; PULSE 74; RESP 17; TEMP 36.8; O2SAT 98
--- NOTE | 2020-02-12 18:01 | PC.NURSE ---
spoke with Krishna Saunders APRN regarding pt bp of 190/110manually she stated to keep him for 30 mins and check it again.
--- NOTE | 2020-02-12 18:36 | PC.NURSE ---
follow up bp is 210/112. Krishna Saunders APRN notified and stated to tell pt take his meds as soon as he gets home (pt stated his next dose on bp meds is at 1900) then check his bp and if it still high to come back in am.
--- NOTE | 2020-02-12 18:41 | PC.NURSE ---
instructed patient to take home bp meds. let him know to come back in morning if still high per aileen rosado. did also instruct patient he could return to er if needed as well for treatment.
[2020-02-12 18:42] VITALS: BP 210/112; PULSE 73; RESP 18; O2SAT 98
== END 2020-02-12 18:45 | disposition home or self-care (01) ==
LOC: INF 17:29
PROVIDERS: PCP Emergency Medicine; Visit Provider Surgery
DX: L03.116 Cellulitis of left lower limb (principal); Z48.01 Encounter for change or removal of surgical wound dressing
CPT/HCPCS: G0463

== ENCOUNTER → 2020-02-13 20:57 | Outpatient (CLI) | payer BC, SELFPAY ==
[2020-02-13 21:17] VITALS: BP 196/119; RESP 20; TEMP 36.7; O2SAT 100; BMI 50.8
== END ==
PROVIDERS: PCP Emergency Medicine; Visit Provider Surgery
DX: L03.116 Cellulitis of left lower limb (principal); Z48.01 Encounter for change or removal of surgical wound dressing
CPT/HCPCS: G0463

== ENCOUNTER 2020-02-15 10:02 | Outpatient (CLI) | payer BC, SELFPAY | END 2020-02-15 10:30 | disposition home or self-care (01) | LOC: INF 10:02 | PROVIDERS: Visit Provider Surgery | DX: L03.116 Cellulitis of left lower limb (principal); Z48.00 Encounter for change or removal of nonsurgical wound dressing | CPT/HCPCS: G0463 ==

== ENCOUNTER 2020-02-16 13:35 | Outpatient (CLI) | payer BC, SELFPAY | END 2020-02-16 13:55 | disposition home or self-care (01) | LOC: INF 13:46 | PROVIDERS: Visit Provider Surgery | DX: L03.116 Cellulitis of left lower limb (principal); Z48.00 Encounter for change or removal of nonsurgical wound dressing | CPT/HCPCS: G0463 ==

== ENCOUNTER 2020-02-17 09:19 | Outpatient (CLI) | payer BC, SELFPAY | END 2020-02-17 09:30 | disposition home or self-care (01) | LOC: INF 09:19 | PROVIDERS: Visit Provider Surgery | DX: L03.116 Cellulitis of left lower limb (principal); Z48.00 Encounter for change or removal of nonsurgical wound dressing | CPT/HCPCS: G0463 ==

== ENCOUNTER 2020-02-18 13:35 | Outpatient (CLI) | payer BC, SELFPAY ==
[2020-02-18 13:45] VITALS: BP 166/111; RESP 18
== END 2020-02-18 13:45 | disposition home or self-care (01) ==
LOC: INF 13:35
PROVIDERS: Visit Provider Surgery
DX: L03.116 Cellulitis of left lower limb (principal); Z48.00 Encounter for change or removal of nonsurgical wound dressing
CPT/HCPCS: G0463

== ENCOUNTER → 2020-02-20 20:42 | Outpatient (CLI) | payer BC, SELFPAY ==
[2020-02-20 21:05] VITALS: PULSE 59; TEMP 37.3; O2SAT 98; BMI 42.9
--- NOTE | 2020-02-20 21:20 | PC.NURSE ---
DSG changed to LLE. Wound pink. Erythema noted to calf area where tape was placed. Pt stated he likes the tape there to prevent it from coming off. Pt was encouraged to not put tape in that area because of skin irritated. Pt allowed for tape to be placed lower. Pt was asked if he had made appt with MD due to HTN last visit. Pt stated that he hasn't had a chance to make appt but stated he will this week.
== END ==
PROVIDERS: PCP Emergency Medicine; Visit Provider Surgery
DX: L03.116 Cellulitis of left lower limb (principal); Z48.00 Encounter for change or removal of nonsurgical wound dressing
CPT/HCPCS: G0463

== ENCOUNTER 2020-02-21 13:09 | Outpatient (CLI) | payer BC, SELFPAY | END 2020-02-21 13:20 | disposition home or self-care (01) | LOC: INF 13:10 | PROVIDERS: Visit Provider Surgery | DX: L03.116 Cellulitis of left lower limb (principal); Z48.00 Encounter for change or removal of nonsurgical wound dressing | CPT/HCPCS: G0463 ==

== ENCOUNTER 2020-02-23 10:56 | Outpatient (CLI) | payer BC, SELFPAY | END 2020-02-23 13:35 | disposition home or self-care (01) | LOC: INF 10:56 | PROVIDERS: Visit Provider Surgery | DX: L03.116 Cellulitis of left lower limb (principal); Z48.00 Encounter for change or removal of nonsurgical wound dressing | CPT/HCPCS: G0463 ==

== ENCOUNTER 2020-02-24 15:18 | Outpatient (CLI) | payer BC, SELFPAY | END 2020-02-24 15:23 | disposition home or self-care (01) | LOC: INF 15:18 | PROVIDERS: Visit Provider Surgery | DX: L03.116 Cellulitis of left lower limb (principal); Z48.00 Encounter for change or removal of nonsurgical wound dressing | CPT/HCPCS: G0463 ==

== ENCOUNTER 2020-02-26 10:04 | Outpatient (CLI) | payer BC, SELFPAY ==
[2020-02-26 10:22] VITALS: BP 154/106; PULSE 82; RESP 18; TEMP 36.5; O2SAT 98; BMI 44.6
== END 2020-02-26 10:32 | disposition home or self-care (01) ==
LOC: INF 10:05
PROVIDERS: PCP Emergency Medicine; Visit Provider Surgery
DX: L03.116 Cellulitis of left lower limb (principal); Z48.00 Encounter for change or removal of nonsurgical wound dressing
CPT/HCPCS: G0463

== ENCOUNTER 2020-02-28 13:31 | Outpatient (CLI) | payer BC, SELFPAY | END 2020-02-28 13:42 | disposition home or self-care (01) | LOC: INF 13:31 | PROVIDERS: Visit Provider Surgery | DX: L03.116 Cellulitis of left lower limb (principal); Z48.00 Encounter for change or removal of nonsurgical wound dressing | CPT/HCPCS: G0463 ==

== ENCOUNTER 2020-02-29 09:51 | Outpatient (CLI) | payer BC, SELFPAY | END 2020-02-29 10:05 | disposition home or self-care (01) | LOC: INF 09:51 | PROVIDERS: Visit Provider Surgery | DX: L03.116 Cellulitis of left lower limb (principal) | CPT/HCPCS: G0463 ==

== ENCOUNTER 2020-03-01 14:41 | Outpatient (CLI) | payer BC, SELFPAY | END 2020-03-01 14:51 | disposition home or self-care (01) | LOC: INF 14:41 | PROVIDERS: Visit Provider Surgery | DX: L03.116 Cellulitis of left lower limb (principal); Z48.00 Encounter for change or removal of nonsurgical wound dressing | CPT/HCPCS: G0463 ==

== ENCOUNTER 2020-03-02 10:09 | Outpatient (CLI) | payer BC, SELFPAY | END 2020-03-02 10:35 | disposition home or self-care (01) | LOC: INF 10:09 | PROVIDERS: Visit Provider Surgery | DX: L03.116 Cellulitis of left lower limb (principal); Z48.00 Encounter for change or removal of nonsurgical wound dressing | CPT/HCPCS: G0463 ==

== ENCOUNTER 2020-03-03 13:02 | Outpatient (CLI) | payer BC, SELFPAY ==
--- NOTE | 2020-03-03 13:10 | PC.NURSE ---
CLEANED WOUND WITH DAKINS SOLUTION, LAID GAUZE MOISTENED WITH DAKINS OVER WOUND, COVERED WITH DRY 4X4'S, AND WRAPPED WITH DRY GAUZE FOLLOWED BY PETERSON
== END 2020-03-03 13:22 | disposition home or self-care (01) ==
LOC: INF 13:02
PROVIDERS: Visit Provider Surgery
DX: L03.116 Cellulitis of left lower limb (principal); Z48.00 Encounter for change or removal of nonsurgical wound dressing
CPT/HCPCS: G0463

== ENCOUNTER → 2020-03-04 11:34 | Outpatient (CLI) | payer BC, SELFPAY ==
[2020-03-04 11:45] VITALS: BP 181/132; PULSE 88; RESP 18; TEMP 36.5; O2SAT 98
[2020-03-04 12:03] VITALS: BP 175/122; PULSE 87; RESP 18; TEMP 36.6; O2SAT 98
--- NOTE | 2020-03-04 12:04 | PC.NURSE ---
Patient was noted to be hypertensive upon arrival for dressing change, pt states he had not taken his blood pressure medication this morning and would take it when he gets home, instructed patient to take his home blood pressure medications and recheck his blood pressure this afternoon to monitor for effectiveness. Patient is agreeable to this.
== END ==
PROVIDERS: PCP Emergency Medicine; Visit Provider Surgery
DX: L03.116 Cellulitis of left lower limb (principal); Z48.00 Encounter for change or removal of nonsurgical wound dressing
CPT/HCPCS: G0463

== ENCOUNTER 2020-03-04 16:28 | Inpatient (IN) | payer BC, SELFPAY ==
[2020-03-04] VITALS (31 sets, daily range): BP systolic 153–225; BP diastolic 89–165; PULSE 52–100; RESP 16–20; TEMP 36.4–36.7; O2SAT 97–100; BMI 42.9; BMI 42.5; BMI 41.5
--- NOTE | 2020-03-04 | ECG_ITS ---
APPROVED REPORT Exam: Resting ECG HR:120 bpm ECG Measurements Heart Rate 120 AXES DE 120 P QRSd 92 QRS 56 QT 406 T 55 QTc 573 <Conclusion> Sinus tachycardia Nonspecific ST abnormality Abnormal ECG Electronically signed by : Farrukh Liu, 03/05/2020 06:02:17
--- NOTE | 2020-03-04 16:41 | HMH.EDUTC ---
[facility] Disposition Clinical Impression: Hypertension Qualifiers: Hypertension type: unspecified Qualified Code(s): I10 - Essential (primary) hypertension Disposition: Still a Patient Condition on Discharge: Good Referrals: Zaki Fuller MD [Primary Care Provider] - Time of Disposition: 16:48 Medical Decision Making - Aram Inquiry Pt receiving controlled substance: No Aram was queried for this patient: No Vital Signs: 03/04/20 16:36 Temperature 98.0 F Temperature Source Oral Pulse Rate [Radial] 83 Respiratory Rate 18 Blood Pressure [Right Arm] 200/139 H Blood Pressure Mean [Right Arm] 159 Blood Pressure Source [Right Arm] Automatic Cuff Blood Pressure Position [Right Arm] Sitting 02 Sat by Pulse Oximetry 97 Oxygen Delivery Method Room Air Medical Decision Narrative: Spoke with patient and patient advised that his head was feeling like it is going to blow off and his vision wasnt blurry but hazy and just did not feel well so he came in discussed with patient and recommended transfer to ED for further testing and evaluation and patient agreed Called ER spoke with Sonia RN and patient was moved to room 6 via wheelchair for further evaluation and treatment [facility] HPI - General Stated complaint: blood presure high Time Seen by Provider: 03/04/20 16:41 Mode of Arrival: Ambulatory Source of Information: Patient Limitations: No Limitations Description of Symptoms (Recalled from Triage Doc. by RN): high blood pressure HEENT Symptoms (Recalled from RN notes): No Resp Symptoms (Recalled from RN notes): No Skin Symptoms (Recalled from RN notes): No MS Symptoms (Recalled from RN notes): Yes Functional Status (Recalled from RN notes): wnl - History of Present Illness Provider Complaint: Patient states that he has been having blood pressure problems today States that his blood pressure has been high and he has been having severe headache and feels like his head is going to blow off States that he hasnt had blurry vision but vision has been hazy today and he hasnt felt well State that he has taken his blood pressure medication today but hasnt helped to bring it down so family brought him in. - Related Data Home Medications Medication Instructions Recorded Confirmed clindamycin HCL [Clindamycin HCl 300 mg PO Q6 01/10/20 02/28/20 300mg Cap] Amlodipine Besylate [Norvasc 10mg 10 mg PO BID 02/10/20 02/28/20 tablet] Isosorbide Dinitrate [Isordil 20mg 20 mg PO TID 02/10/20 02/28/20 tablet] Sulfamethoxazole/Trimethoprim 1 each PO BID 02/10/20 02/28/20 [Bactrim DS tablet] carvediloL [Coreg 25mg Tablet] 25 mg PO BID 02/10/20 02/28/20 minoxidiL [Loniten 10mg tablet] 10 mg PO DAILY 02/10/20 02/28/20 Allergies Allergy/AdvReac Type Severity Reaction Status Date / Time No Known Allergies Allergy Verified 01/24/20 10:53 - Worker's Comp Is this a Worker's Comp case?: No [facility] History - Hepatitis A Screen Drug use history?: No High risk sexual behaviors?: No History of sexually transmitted infection?: No Currently employed?: No Childcare worker?: No Do you have indoor plumbing?: Yes Do you have electricity?: Yes Attestation statement:: This patient has been screened for Hepatitis A risk factors. I have reviewed the patient's past medical history: Yes Medical History: Reports:: Arrhythmia, Atrial Fibrillation, Coronary Artery Disease, Hyperlipidemia, Hypertension, Transient Ischemic Attacks (TIA) Denies:: Cancer, Diabetes Mellitus Type 1, Diabetes Mellitus Type 2, Internal Pacemaker, MRSA Other Surgeries: Yes: No Previous Surgery, Cardiac Catheterization, Other ([facility]). No: Pacemaker Amputation: No Fractures: No Comment: leg - Social History Smoking Status: Current every day smoker Tobacco Type: cigarettes # Packs/Day (cigarettes): 1 Alcohol Intake: never Alcohol Intake Frequency:: a few times a month Substance Use Type: denies use Occupational Stat
--- NOTE | 2020-03-04 16:45 | CT_ITS ---
PROCEDURE: CT HEAD/BRAIN WO CON CLINICAL INDICATION: HTN Severe headache COMPARISON: CT AGHEAD CT angio head from 09/16/2018 TECHNIQUE: Axial images obtained. All CT scans at the facility use one or more dose reduction, viz: automated exposure control, ma/kV adjustment per patient size (including targeted exams where dose is matched to indication, i.e. head), or iterative reconstruction technique. FINDINGS: No midline shift, mass effect, intracranial hemorrhage, hydrocephalus, or extra-axial fluid collection is evident. The calvarium has an unremarkable appearance. No mastoid effusion. There is mild mucosal thickening of the ethmoid and left maxillary sinus. 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 No acute intracranial findings. 2. Sinus disease Dictated by: Jefferson Qureshi MD 03/04/2020 20:54 Jefferson Qureshi MD in [place] 03/04/2020 20:54
--- NOTE | 2020-03-04 16:45 | XR_ITS ---
PROCEDURE: XR CHEST 2V CLINICAL HISTORY: HTN COMPARISON: 11/02/2018 FINDINGS: The cardiomediastinal silhouette and pulmonary vascularity are within normal limits. The lungs are clear without infiltrates, suspicious nodules, or pleural effusions. No acute bony abnormalities. IMPRESSION: No acute findings. Dictated by: Jefferson Qureshi MD 03/04/2020 22:23 Jefferson Qureshi MD in [facility] 03/04/2020 22:23
--- NOTE | 2020-03-04 16:58 | ECG_ITS ---
APPROVED REPORT Exam: Resting ECG HR:61 bpm ECG Measurements Heart Rate 61 AXES NH 114 P 52 QRSd 98 QRS 24 QT 446 T 187 QTc 448 <Conclusion> Normal sinus rhythm Possible Left atrial enlargement ST & T wave abnormality, consider inferior ischemia ST & T wave abnormality, consider anterolateral ischemia Abnormal ECG Electronically signed by : Farrukh Liu, 03/05/2020 06:03:08
[2020-03-04 17:07] LABS: Chloride 109 mmol/L (98-107); Potassium 3.5 mmoL/L (3.5-5.1); Sodium 142 mmol/L (136-145)
[2020-03-04 17:09] LABS: Basophils # 0.1 K/mm3 (0-0.2); Basophils % 0.7 % (0.1-2.0); Blood Urea Nitrogen 52 mg/dl (9-20); Creatinine Clearance Estimated 21 mL/min (50-200); Eosinophils # 0.3 K/mm3 (0.0-0.4); Eosinophils % 2.7 % (0.1-12.0); Estimated Glomerular Filt Rate 18 ml/min (>60); GFR (African American) 22 ML/MIN (>60); Hematocrit 41.2 % (42.0-52.0); Hemoglobin 14.1 g/dL (14.1-18.0); Lymphocytes # 1.8 K/mm3 (0.7-4.5); Lymphocytes % 16.3 % (10-50); Mean Corpuscular HGB Conc 34.2 g/dL (31.8-35.4); Mean Corpuscular Hemoglobin 28.1 pg (27.0-31.2); Mean Corpuscular Volume 82.2 fl (80-94); Mean Platelet Volume 10.1 fl (7.4-10.4); Monocytes # 0.6 K/mm3 (0.1-1.0); Monocytes % 4.9 % (1.7-9.3); Neutrophils # 8.4 K/mm3 (1.8-7.8); Neutrophils % 75.4 % (37.0-80.0); Platelet Count 184 K/mm3 (142-424); Red Blood Count 5.01 M/mm3 (4.60-6.20); White Blood Count 11.2 K/mm3 (4.8-10.8)
[2020-03-04 17:10] LABS: Alanine Aminotransferase 26 U/L (12-78); Albumin Level 4.3 g/dl (3.5-5.0); Albumin/Globulin Ratio 1.3 (1.1-1.8); Alkaline Phosphatase 96 U/L (38-126); Anion Gap 16.5 mEq/L (5-15); Aspartate Amino Transferase 28 U/L (17-59); Bilirubin,Total 1.3 mg/dl (0.2-1.3); Calcium 8.9 mg/dl (8.4-10.2); Carbon Dioxide 20 mmol/L (22.0-30.0); Globulin 3.2 g/dL (1.3-3.2); Glucose 115 mg/dl (74-100); Total Protein,Serum 7.5 g/dl (6.3-8.2)
--- NOTE | 2020-03-04 17:10 | PC.NURSE ---
PT TO RAD
--- NOTE | 2020-03-04 17:17 | PC.NURSE ---
PT BACK FROM RAD
--- NOTE | 2020-03-04 17:17 | PC.NURSE ---
DR CABAN NOTIFIED OF PT CRITICAL RESULTS AND CRITICAL BP, NO NEW ORDERS GIVEN
--- NOTE | 2020-03-04 17:20 | PC.NURSE ---
PT C/O A SEVERE PRESSURE IN HIS HEAD, MADE AWARE
[2020-03-04 17:22] LABS: Troponin I 0.05 ng/ml (0.00-0.034)
--- NOTE | 2020-03-04 17:39 | HMH.EDGENADL ---
ED Disposition Clinical Impression: Hypertensive emergency, ZENON (acute kidney injury) Disposition: Still a Patient Condition on Discharge: Fair Referrals: Zaki Fuller MD [Primary Care Provider] - Time of Disposition: 20:31 - Critical Care Critical Care Time: No Attestation: On 03/04/20, the high probability of a clinically significant, sudden or life threatening deterioration of the following system(s) required my full and direct attention, intervention and personal management. The time I documented below is in addition to time spent performing reported procedures but includes the following listed in this critical care notation. Medical Decision Making - Medical Records Medical records reviewed: Yes: I reviewed the patient's medical records. - Aram Inquiry Pt receiving controlled substance: No Vital Signs: 03/04/20 16:36 03/04/20 16:58 03/04/20 17:17 Temperature 98.0 F Temperature Source Oral Pulse Rate [Radial] 83 80 65 Respiratory Rate 18 17 17 Blood Pressure [Right Arm] 200/139 H 181/120 H 225/165 H Blood Pressure Mean [Right Arm] 159 140 185 Blood Pressure Source [Right Arm] Automatic Cuff Manual Cuff/ Auscultation Blood Pressure Position [Right Arm] Sitting 02 Sat by Pulse Oximetry 97 99 100 Oxygen Delivery Method Room Air 03/04/20 17:28 03/04/20 17:30 03/04/20 17:40 Temperature Temperature Source Pulse Rate [Radial] 69 79 76 Respiratory Rate 17 17 17 Blood Pressure [Right Arm] 190/130 H 211/135 H 202/135 H Blood Pressure Mean [Right Arm] 150 160 157 Blood Pressure Source [Right Arm] Blood Pressure Position [Right Arm] 02 Sat by Pulse Oximetry 100 100 100 Oxygen Delivery Method 03/04/20 17:56 03/04/20 18:03 03/04/20 18:09 Temperature Temperature Source Pulse Rate [Radial] 77 78 74 Respiratory Rate 18 17 19 Blood Pressure [Right Arm] 200/121 H 190/107 H 186/105 H Blood Pressure Mean [Right Arm] 147 134 132 Blood Pressure Source [Right Arm] Blood Pressure Position [Right Arm] 02 Sat by Pulse Oximetry 100 100 100 Oxygen Delivery Method 03/04/20 18:19 03/04/20 18:26 03/04/20 18:30 Temperature Temperature Source Pulse Rate [Radial] 83 87 87 Respiratory Rate 17 18 17 Blood Pressure [Right Arm] 187/115 H 180/112 H 181/110 H Blood Pressure Mean [Right Arm] 139 134 133 Blood Pressure Source [Right Arm] Blood Pressure Position [Right Arm] 02 Sat by Pulse Oximetry 99 100 100 Oxygen Delivery Method 03/04/20 18:45 03/04/20 18:49 03/04/20 18:54 Temperature Temperature Source Pulse Rate [Radial] 80 93 H 94 H Respiratory Rate 18 17 17 Blood Pressure [Right Arm] 187/104 H 182/94 H 164/99 H Blood Pressure Mean [Right Arm] 131 123 120 Blood Pressure Source [Right Arm] Blood Pressure Position [Right Arm] 02 Sat by Pulse Oximetry 100 100 100 Oxygen Delivery Method 03/04/20 19:00 03/04/20 19:15 03/04/20 19:47 Temperature Temperature Source Pulse Rate [Radial] 89 84 93 H Respiratory Rate 18 16 Blood Pressure [Right Arm] 171/93 H 160/96 H 169/110 H Blood Pressure Mean [Right Arm] 119 117 129 Blood Pressure Source [Right Arm] Blood Pressure Position [Right Arm] 02 Sat by Pulse Oximetry 100 100 98 Oxygen Delivery Method Room Air Room Air 03/04/20 20:00 03/04/20 20:07 Temperature Temperature Source Pulse Rate [Radial] 78 71 Respiratory Rate 18 Blood Pressure [Right Arm] 153/99 H 154/89 H Blood Pressure Mean [Right Arm] 117 110 Blood Pressure Source [Right Arm] Automatic Cuff Blood Pressure Position [Right Arm] Supine 02 Sat by Pulse Oximetry 99 98 Oxygen Delivery Method Room Air Room Air - Lab Data Lab Results 03/04/20 16:56: WBC 11.2 H, RBC 5.01, Hgb 14.1, Hct 41.2 L, MCV 82.2, MCH 28.1, MCHC 34.2, RDW 15.0, Plt Count 184, MPV 10.1, Neut % (Auto) 75.4, Lymph % (Auto) 16.3, [place] % (Auto) 4.9, Eos % (Auto) 2.7, Baso % (Auto) 0.7, Neut # (Auto) 8.4 H, Lymph # (Auto) 1.8, [place] #
--- NOTE | 2020-03-04 17:40 | PC.NURSE ---
CARDENE DRIP INITIATED AT 50ML/HR
--- NOTE | 2020-03-04 18:03 | PC.NURSE ---
CARDENE TITRATED TO 75ML/HR
[2020-03-04 18:06] LABS: Coronavirus 19 IgG Antibody Negative (Negative); Coronavirus 19 IgM Antibody Negative (Negative)
--- NOTE | 2020-03-04 18:23 | PC.NURSE ---
STATES SHE WISHES TO KEEP PT SYSTOLIC PRESSURE AT 180-175 FOR THE FIRST HOUR, SO CARDENE DRIP REMAINS AT 75ML/HR
--- NOTE | 2020-03-04 18:40 | PC.NURSE ---
NOTIFIED OF PT BP AND STATED TO INCREASE CARDENE DRIP TO 100
--- NOTE | 2020-03-04 18:54 | PC.NURSE ---
speaking to Dr Fuller regarding admission
--- NOTE | 2020-03-04 19:12 | PC.NURSE ---
titrating Cardene off pt, decreased to 5 mg/hr
--- NOTE | 2020-03-04 19:40 | PC.NURSE ---
No gtt off at this time per Dr Fuller
[2020-03-04 20:18] LABS: Troponin I 0.05 ng/ml (0.00-0.034)
--- NOTE | 2020-03-04 20:48 | PC.NURSE ---
Pt put back on Cardene gtt at 5mg/hr
--- NOTE | 2020-03-04 21:30 | PC.NURSE ---
Cardene gtt turned up to 10mg/hr
--- NOTE | 2020-03-04 21:51 | HMH.HP ---
*Admission Date: 03/04/20 *Chief complaint: elevated bp *History of present illness: this wm presented to the ed with elevated bp and headache 49-year-old male with history of hypertension presenting to the emergency department with elevated blood pressure at home, headache. Headache is described as global and throbbing. It is located behind his eyes and radiates to the back of his head. pouding. Symptoms started this morning when he woke up. Were gradual in onset, not sudden. Feels similar to previous hypertensive headaches. He takes amlodipine, isosorbide, carvedilol. No changes in his medications. Denies recent illness, fevers, chills, nausea, vomiting. No blurry vision or chest pain. pt was admitted for meds and reestablish bp meds [facility] History I have reviewed the patient's past medical history: Yes Medical History: Reports:: Arrhythmia, Atrial Fibrillation, Coronary Artery Disease, Hyperlipidemia, Hypertension, Transient Ischemic Attacks (TIA) Denies:: Cancer, Diabetes Mellitus Type 1, Diabetes Mellitus Type 2, Internal Pacemaker, MRSA *Have you ever received a pneumonia vaccine?: No *Have you received a flu vaccine this season?: No Other Surgeries: Yes: No Previous Surgery, Cardiac Catheterization, Other ([email or web address] No: Pacemaker Amputation: No Fractures: No - *Social History Smoking Status: Current every day smoker Tobacco Type: cigarettes # Packs/Day (cigarettes): 1 Alcohol Intake: never Alcohol Intake Frequency:: a few times a month Substance Use Type: denies use *Occupational Status:: other Housing: house Household Members: none *Travel in the last 8 weeks: None Family Hx:: Hypertension Review of Systems - Constitutional Denies body ache(s) - Eyes Denies discharge - ENT Denies sore throat - *Cardiovascular Denies chest pain at rest - *Respiratory Denies cough - *Gastrointestinal Denies abdominal pain - *Genitourinary Denies difficulty urinating - *Musculoskeletal Denies joint pain - *Neurologic Reports headache(s), Reports other (reports dont feel good'), Denies abnormal speech, Denies confusion, Denies dizziness, Denies loss of vision, Denies numbness, Denies tingling, Denies weakness - Psychiatric Denies anxiety Meds Home Medications Medication Instructions Recorded Confirmed Type Isosorbide Dinitrate [Isordil 20mg 20 mg PO TID 02/10/20 03/05/20 History tablet] carvediloL [Coreg 25mg Tablet] 25 mg PO BID 02/10/20 03/05/20 History Allergies Allergy/AdvReac Type Severity Reaction Status Date / Time No Known Allergies Allergy Verified 03/05/20 00:04 Exam Vital signs and Labs for Last 24 Hours: Temp Pulse Resp BP Pulse Ox 98.0 F 85 17 169/102 H 98 03/04/20 16:36 03/04/20 21:47 03/04/20 21:47 03/04/20 21:47 03/04/20 21:47 Laboratory Results - last 24 hr 03/04/20 16:56: WBC 11.2 H, RBC 5.01, Hgb 14.1, Hct 41.2 L, MCV 82.2, MCH 28.1, MCHC 34.2, RDW 15.0, Plt Count 184, MPV 10.1, Neut % (Auto) 75.4, Lymph % (Auto) 16.3, Alfalfa % (Auto) 4.9, Eos % (Auto) 2.7, Baso % (Auto) 0.7, Neut # (Auto) 8.4 H, Lymph # (Auto) 1.8, Alfalfa # (Auto) 0.6, Eos # (Auto) 0.3, Baso # (Auto) 0.1 03/04/20 16:56: Sodium 142, Potassium 3.5, Chloride 109 H, Carbon Dioxide 20 L, Anion Gap 16.5 H, BUN 52 H, Creatinine 3.60 H, Estimated Creat Clear 21, Estimated GFR 18 L*, Est GFR ( Amer) 22 L, Glucose 115 H, Calcium 8.9, Total Bilirubin 1.3, AST 28, ALT 26, Alkaline Phosphatase 96, Troponin I 0.05 H, Total Protein 7.5, Albumin 4.3, Globulin 3.2, Albumin/Globulin Ratio 1.3 03/04/20 16:56: SARS-CoV-2 IgG Ab (Rapid) Negative, SARS-CoV-2 IgM Ab (Rapid) Negative 03/04/20 17:45: Troponin I 0.05 H I & O for Last 24 hours: Intake & Output 03/02/20 03/03/20 03/04/20 03/05/20 11:59 11:59 11:59 11:59 Weight 249 lb 1.957 oz - Constitutional no acute distress, obese - *Routine HEENT Exam Head: Present: normocephalic Eye: Present: EOMI, PERRL ENT: P
--- NOTE | 2020-03-04 22:34 | PC.NURSE ---
Cardene gtt increased to 12 mg/hr, holding pt in ER until BP stabilizes
--- NOTE | 2020-03-04 23:11 | PC.NURSE ---
PT ARRIVED TO THE FLOOR VIA STRETCHER WITH STAFF FROM ED AT 2311.
[2020-03-05] VITALS (42 sets, daily range): BP systolic 113–194; BP diastolic 45–108; PULSE 50–120; RESP 14–22; TEMP 36.3–36.9; O2SAT 94–100; BMI 41.3
--- NOTE | 2020-03-05 03:42 | PC.NURSE ---
0230 cardene drip restarted at 5 mg/hr, infusing in left hand currently
--- NOTE | 2020-03-05 03:44 | PC.NURSE ---
0100 david kelly stopped
--- NOTE | 2020-03-05 03:45 | PC.NURSE ---
0000 BP dropped to 201/124 to 139/71 with cardene at 12 mg/hr, HR increased to 120's to 130's, pt complained of left sided chest pain at 7/10 on pain scale, pt complained of nausea,SOB, no diaphoresis noted, no change in color, cardene drip decreased to 5 mg/hr, stat EKG obtained, EKG and pt status discussed with Dr. Fuller, no new orders received, pt began feeling better, HR and pain decreased
--- NOTE | 2020-03-05 06:05 | PC.NURSE ---
LLE, red coban dressing present, pt receives daily outpatient dressing changes, next dressing change due this AM
--- NOTE | 2020-03-05 06:08 | PC.NURSE ---
pt has reported no more chest pain, cardene remains at 5mg/hr, systolic BP remains 130-140, HR remains 60's to 90 s
[2020-03-05 07:30] LABS: Chloride 109 mmol/L (98-107); Potassium 3.4 mmoL/L (3.5-5.1); Sodium 140 mmol/L (136-145)
[2020-03-05 07:31] LABS: Basophils # 0.1 K/mm3 (0-0.2); Basophils % 0.7 % (0.1-2.0); Eosinophils # 0.5 K/mm3 (0.0-0.4); Eosinophils % 4.2 % (0.1-12.0); Hematocrit 40.9 % (42.0-52.0); Hemoglobin 13.9 g/dL (14.1-18.0); Lymphocytes # 2.4 K/mm3 (0.7-4.5); Lymphocytes % 19.3 % (10-50); Mean Corpuscular HGB Conc 33.9 g/dL (31.8-35.4); Mean Corpuscular Hemoglobin 28.6 pg (27.0-31.2); Mean Corpuscular Volume 84.3 fl (80-94); Mean Platelet Volume 9.9 fl (7.4-10.4); Monocytes # 0.6 K/mm3 (0.1-1.0); Monocytes % 4.7 % (1.7-9.3); Platelet Count 199 K/mm3 (142-424); Red Blood Count 4.85 M/mm3 (4.60-6.20); Red Cell Distribution Width 15.2 % (11.5-17.5); White Blood Count 12.6 K/mm3 (4.8-10.8)
[2020-03-05 07:33] LABS: Anion Gap 15.4 mEq/L (5-15); Blood Urea Nitrogen 47 mg/dl (9-20); Calcium 8.5 mg/dl (8.4-10.2); Carbon Dioxide 19 mmol/L (22.0-30.0); Creatinine Clearance Estimated 25 mL/min (50-200); Estimated Glomerular Filt Rate 22 ml/min (>60); GFR (African American) 27 ML/MIN (>60); Glucose 103 mg/dl (74-100)
--- NOTE | 2020-03-05 10:11 | HMH.ACPN2 ---
Internal Medicine - PN: Subj *Date: 03/06/20 *Time: 14:08 Interval history: doing better - off cardene drip Exam Vital signs and Labs for Last 24 Hours: Temp Pulse Resp BP Pulse Ox 97.4 F L 61 14 154/90 H 98 03/05/20 07:54 03/05/20 09:00 03/05/20 09:00 03/05/20 09:00 03/05/20 09:00 Laboratory Results - last 24 hr 03/04/20 16:56: WBC 11.2 H, RBC 5.01, Hgb 14.1, Hct 41.2 L, MCV 82.2, MCH 28.1, MCHC 34.2, RDW 15.0, Plt Count 184, MPV 10.1, Neut % (Auto) 75.4, Lymph % (Auto) 16.3, [place] % (Auto) 4.9, Eos % (Auto) 2.7, Baso % (Auto) 0.7, Neut # (Auto) 8.4 H, Lymph # (Auto) 1.8, [place] # (Auto) 0.6, Eos # (Auto) 0.3, Baso # (Auto) 0.1 03/04/20 16:56: Sodium 142, Potassium 3.5, Chloride 109 H, Carbon Dioxide 20 L, Anion Gap 16.5 H, BUN 52 H, Creatinine 3.60 H, Estimated Creat Clear 21, Estimated GFR 18 L*, Est GFR ( Amer) 22 L, Glucose 115 H, Calcium 8.9, Total Bilirubin 1.3, AST 28, ALT 26, Alkaline Phosphatase 96, Troponin I 0.05 H, Total Protein 7.5, Albumin 4.3, Globulin 3.2, Albumin/Globulin Ratio 1.3 03/04/20 16:56: SARS-CoV-2 IgG Ab (Rapid) Negative, SARS-CoV-2 IgM Ab (Rapid) Negative 03/04/20 17:45: Troponin I 0.05 H 03/05/20 06:31: WBC 12.6 H, RBC 4.85, Hgb 13.9 L, Hct 40.9 L, MCV 84.3, MCH 28.6, MCHC 33.9, RDW 15.2, Plt Count 199, MPV 9.9, Neut % (Auto) 71.0, Lymph % (Auto) 19.3, [place] % (Auto) 4.7, Eos % (Auto) 4.2, Baso % (Auto) 0.7, Neut # (Auto) 9.0 H, Lymph # (Auto) 2.4, [place] # (Auto) 0.6, Eos # (Auto) 0.5 H, Baso # (Auto) 0.1 03/05/20 06:31: Sodium 140, Potassium 3.4 L, Chloride 109 H, Carbon Dioxide 19 L, Anion Gap 15.4 H, BUN 47 H, Creatinine 3.00 H, Estimated Creat Clear 25, Estimated GFR 22 L, Est GFR ( Amer) 27 L D, Glucose 103 H, Calcium 8.5 I & O for Last 24 hours: Intake & Output 03/02/20 03/03/20 03/04/20 03/05/20 11:59 11:59 11:59 11:59 Intake Total 1120 / 1120 Output Total 1200 / 1200 Balance -80 / -80 Weight 242 lb 4.009 oz - Constitutional obese - *Routine HEENT Exam Head: Present: normocephalic Eye: Present: EOMI, PERRL ENT: Present: mucous membranes dry - *Routine Neck Exam Present: supple - *Routine Respiratory Exam Present: CTA bilaterally - *Routine Cardiovascular Exam Present: RRR, murmur - *Routine Abdominal Exam Present: soft - *Routine Extremities Exam Absent: calf tenderness - *Routine Skin Exam Present: intact - *Routine Neurological Exam Present: alert, oriented X3 - Routine Psychiatric Exam Present: normal affect Assessment and Plan (1) ZENON (acute kidney injury) Current visit: Yes Status: Acute Category: Medical Code(s): N17.9 - Acute kidney failure, unspecified (2) Hypertensive emergency Current visit: Yes Status: Acute Category: Medical Code(s): I16.1 - Hypertensive emergency (3) Obesity Current visit: No Status: Acute Qualifiers: Obesity type: due to excess calories Obesity classification: adult class 3 (BMI >= 40) Serious obesity comorbidity presence: with serious comorbidity Body mass index: BMI 40.0-44.9 Qualified Code(s): E66.01 - Morbid (severe) obesity due to excess calories; Z68.41 - Body mass index (BMI) 40.0-44.9, adult Category: Medical Code(s): E66.9 - Obesity, unspecified (4) Hypertension Current visit: Yes Status: Chronic Qualifiers: Hypertension type: unspecified Qualified Code(s): I10 - Essential (primary) hypertension Category: Medical Code(s): I10 - Essential (primary) hypertension
--- NOTE | 2020-03-05 10:14 | PC.NURSE ---
MD RACHID UNDERWOOD. AWARE OF K LEVEL OF 3.4. AWARE OF CARDENE GTT BEING OFF SINCE 729. MD AWARE OF PATIENTS NON COMPLIANCE WITH HOME MEDICATIONS- PATIENT STATES HIS DOG ATE HIS MEDICATION. MD WILL LOOK AT MEDICATIONS AND SEE IF HE NEEDS TO ADJUST ANYTHING. MD GAVE VERBAL ORDERS TO D/C PATIENT FROM STEP DOWN OBS.
--- NOTE | 2020-03-05 14:23 | PC.NURSE ---
WOUND CARE PERFORMED TO LLE. DAKINS 4X4 FLUFFED, DRY 4X4, KERLIX, COBAN. PATIENT TOLERATED WELL. WOUND BED IS RED. NO DRAINAGE NOTED. WOUND IS [id number]. PICTURE TAKEN AND PLACED ON CHART. CONSENT OBTAINED FOR PICTURE AND PLACED ON CHART.
--- NOTE | 2020-03-05 14:40 | P.CONPHA_ITS ---
[facility] Pharmacy VTE Monitoring - Patient Demographics Admission date: 03/05/20 Report Date: 03/05/20 Time: 14:40 Allergies/Adverse Reactions: Patient Allergies No Known Allergies Allergy (Verified 03/05/20 00:04) Height: 1.63 m Weight: 109.883 kg Patient Problems: Current Active Problems Hypertensive emergency (Acute) ZENON (acute kidney injury) (Acute) Hypertension (Chronic) - VTE Risk Labs: VTE Related Lab Results Hgb 13.9 g/dL (14.1-18.0) L 03/05/20 06:31 Hct 40.9 % (42.0-52.0) L 03/05/20 06:31 Plt Count 199 K/mm3 (142-424) 03/05/20 06:31 BUN 47 mg/dl (9-20) H 03/05/20 06:31 Creatinine 3.00 mg/dl (0.66-1.25) H 03/05/20 06:31 Estimated Creat Clear 25 mL/min (50-200) 03/05/20 06:31 Was VTE Risk Assessment Performed: Yes VTE Score: 2 VTE Risk Level: Very Low Risk - Prophylaxis Types of VTE Prophylaxis: TEDS Knee High (CHOCO HOSE ORDERED)
--- NOTE | 2020-03-05 17:56 | PC.NURSE ---
PATIENT LYING IN BED A&O NO ISSUES AT THIS TIME. NO C/O PAIN, NO C/O N,V,D. PATIENT ON RA-PATIENTS BP WITHIN NORMAL LIMITS. SAFETY MEASURES IN PLACE.
[2020-03-06] VITALS: BP 184/113; PULSE 60; PULSE 70; RESP 17; TEMP 36.6; O2SAT 99
--- NOTE | 2020-03-06 00:11 | PC.NURSE ---
Dr. Fuller notified of elevated BP
[2020-03-06 04:00] VITALS: BP 174/101; PULSE 55; PULSE 58; RESP 16; TEMP 36.6; O2SAT 99
[2020-03-06 05:00] VITALS: BMI 41.6
--- NOTE | 2020-03-06 05:21 | PC.NURSE ---
pt has rested well t/o shift, elevated BP, physician notified, no new orders, pt has complained of headache t/o shift, treated with tylenol, pt HR has sustained 40-50's t/o shift, equipment monitor phototypesetting shows sinus livier
--- NOTE | 2020-03-06 07:00 | PC.NURSE ---
pt HR drops as low as 40 while sleeping, returns to 60s when awake
[2020-03-06 08:00] VITALS: BP 181/113; PULSE 50; PULSE 59; RESP 18; TEMP 36.7; O2SAT 98; O2SAT 99
--- NOTE | 2020-03-06 10:59 | HMH.CNCARD ---
History of Present Illness Consult date: 03/06/20 Requesting physician: Zaki Fuller Consult reason: hypertension Chief complaint: Headache, elevated BP Additional Medical History:: 1. Malignant hypertension A. Echocardiogram, 02/2018, enlarged left atrium, normal LV size, moderate concentric LVH with EF of 50%. No regional wall motion abnormality. Grade 1 diastolic dysfunction. Mild MR and TR. B. Renal artery duplex, 12/2019, no evidence of renal artery stenosis C. Echocardiogram, 12/2019, LVEF 40-50% with moderate concentric LVH. Right heart normal in size and function. No significant valve stenosis or regurgitation. Grade 2 diastolic dysfunction noted. Aortic root dilatation noted at 4 cm in diameter. 2. Coronary artery disease A. Abnormal high risk stress test with appearance of nontransmural AK involving inferior wall with partial reversibility in the apex and previous nontransmural AK involving anterior wall with associated regional wall motion abnormality. 03/2018 B. Cardiac catheterization 04/13/2018 showed mild to moderate [id number] coronary artery disease of the LAD, ramus, circumflex and RCA. 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 Normal left ventricular ejection fraction with LVEDP 15 mmHg 3. Ongoing tobacco use 4. Left lower extremity ulcer/cellulitis 5. Chronic kidney disease, stage III-IV A. Creatinine 2.1-3.1 with GFR 22-33 by labs from 02/2019 and 01/01/2020 6. Paroxysmal atrial fibrillation, 02/2019 A. Previously prescribed Xarelto therapy but patient is noncompliant 7. Medication noncompliance complicates all aspects of care. History of present illness: this wm presented to the ed with elevated bp and headache 49-year-old male with history of hypertension presenting to the emergency department with elevated blood pressure at home, headache. Headache is described as global and throbbing. It is located behind his eyes and radiates to the back of his head. pounding. Symptoms started this morning when he woke up. Were gradual in onset, not sudden. Feels similar to previous hypertensive headaches. He takes amlodipine, isosorbide, carvedilol. No changes in his medications. Denies recent illness, fevers, chills, nausea, vomiting. No blurry vision or chest pain. pt was admitted for meds and reestablish bp meds The above per Dr. Alina Pt relates only taking half of his meds (2 of the 4 meds) because he has made bad decisions and he misplaced some meds. He states he lives alone with no one to help take care of him. Headache has improved some but not resolved. Pt does not want to talk much. Curls up in blanket and mumbles to himself. [facility] History Medical History: Reports:: Arrhythmia, Atrial Fibrillation, Coronary Artery Disease, Hyperlipidemia, Hypertension, Transient Ischemic Attacks (TIA) Denies:: Cancer, Diabetes Mellitus Type 1, Diabetes Mellitus Type 2, Internal Pacemaker, MRSA *Have you ever received a pneumonia vaccine?: No *Have you received a flu vaccine this season?: No Other Surgeries: Yes: No Previous Surgery, Cardiac Catheterization, Other ([facility]). No: Pacemaker Amputation: No Fractures: No - *Social History Smoking Status: Current every day smoker Tobacco Type: cigarettes # Packs/Day (cigarettes): 1 Alcohol Intake: never Alcohol Intake Frequency:: a few times a month Substance Use Type: denies use *Occupational Status:: unemployed Housing: house Household Members: none *Travel in the last 8 weeks: None Family Hx:: Hypertension Meds Home Medications Medication Instructions Recorded Confirmed Type Isosorbide Dinitrate [Isordil 20mg 20 mg PO TID 02/10/20 03/05/20 History tablet] carvediloL [Coreg 25mg Tablet] 25 mg PO BID 02/10/20 03/05/20 History Allergies Allergy/AdvReac Type Severity Reaction Status Date / Time No Known Allergies Allergy Verified 03/05/20 00:04
[2020-03-06 12:10] VITALS: PULSE 70
--- NOTE | 2020-03-06 13:07 | HMH.ACPN2 ---
Internal Medicine - PN: Subj *Date: 03/06/20 *Time: 17:57 Interval history: Patient denies active chest pain or shortness of breath. Pressures are still elevated. Cardiology service offered the following recommendations 1. Malignant HTN, symptomatic. Exacerbated by medication non-compliance. Continue beta-coty but will switch from Coreg to Toprol due to the patient's noncompliance and only wanting to take medicines once a day. Continue Norvasc 10 mg daily. Will discontinue hydralazine and Isordil in favor of minoxidil 10 mg daily. Home when BP consistently less than 180/100 mm Hg. 2. History of A. fib, currently in NSR. 3. CKD, stage 4 4. Medication non-compliance. His creatinine remains elevated at 3.1 likely reflects a hypertensive nephropathy Exam Vital signs and Labs for Last 24 Hours: Temp Pulse Resp BP Pulse Ox 98.0 F 59 L 18 181/113 H 98 03/06/20 08:00 03/06/20 08:00 03/06/20 08:00 03/06/20 08:00 03/06/20 08:00 I & O for Last 24 hours: Intake & Output 03/03/20 03/04/20 03/05/20 03/06/20 23:59 23:59 23:59 23:59 Intake Total 2440 / 2560 740 / 740 Output Total 2500 / 2500 1600 / 1600 Balance -60 / 60 -860 / -860 Weight 242 lb 4 oz 242 lb 4.009 oz 244 lb 2 oz - Constitutional no acute distress - *Routine HEENT Exam Head: Present: normocephalic Eye: Present: EOMI, PERRL ENT: Present: mucous membranes moist - *Routine Neck Exam Present: supple. Absent: lymphadenopathy - *Routine Respiratory Exam Present: CTA bilaterally - *Routine Cardiovascular Exam Present: RRR - *Routine Abdominal Exam Present: soft, normoactive bowel sounds. Absent: tenderness - *Routine Extremities Exam Absent: cyanosis, clubbing, edema - *Routine Skin Exam Present: warm. Absent: rash - *Routine Neurological Exam Present: alert, oriented X3 Assessment and Plan (1) ZENON (acute kidney injury) Current visit: Yes Status: Acute Category: Medical Code(s): N17.9 - Acute kidney failure, unspecified (2) Hypertensive emergency Current visit: Yes Status: Acute Category: Medical Code(s): I16.1 - Hypertensive emergency (3) Obesity Current visit: No Status: Acute Qualifiers: Obesity type: due to excess calories Obesity classification: adult class 3 (BMI >= 40) Serious obesity comorbidity presence: with serious comorbidity Body mass index: BMI 40.0-44.9 Qualified Code(s): E66.01 - Morbid (severe) obesity due to excess calories; Z68.41 - Body mass index (BMI) 40.0-44.9, adult Category: Medical Code(s): E66.9 - Obesity, unspecified (4) Hypertension Current visit: Yes Status: Chronic Qualifiers: Hypertension type: unspecified Qualified Code(s): I10 - Essential (primary) hypertension Category: Medical Code(s): I10 - Essential (primary) hypertension - Assessment and plan all Dx Assessment and Plan for all problems:: We agree with simplification of his regimen and will monitor his progress. We will check a.m. labs for renal function. Encouraged compliance in the future. Also encouraged regular medical follow-up.
[2020-03-06 13:30] LABS: Basophils # 0.1 K/mm3 (0-0.2); Basophils % 0.6 % (0.1-2.0); Eosinophils # 0.4 K/mm3 (0.0-0.4); Eosinophils % 3.8 % (0.1-12.0); Hematocrit 42.6 % (42.0-52.0); Hemoglobin 14.9 g/dL (14.1-18.0); Lymphocytes # 1.6 K/mm3 (0.7-4.5); Lymphocytes % 15.3 % (10-50); Mean Corpuscular HGB Conc 34.8 g/dL (31.8-35.4); Mean Corpuscular Hemoglobin 28.9 pg (27.0-31.2); Mean Corpuscular Volume 83.1 fl (80-94); Mean Platelet Volume 9.2 fl (7.4-10.4); Monocytes # 0.3 K/mm3 (0.1-1.0); Monocytes % 2.4 % (1.7-9.3); Neutrophils # 8.2 K/mm3 (1.8-7.8); Neutrophils % 77.9 % (37.0-80.0); Platelet Count 193 K/mm3 (142-424); Red Blood Count 5.13 M/mm3 (4.60-6.20); White Blood Count 10.5 K/mm3 (4.8-10.8)
[2020-03-06 13:50] LABS: Chloride 107 mmol/L (98-107); Potassium 3.8 mmoL/L (3.5-5.1); Sodium 140 mmol/L (136-145)
[2020-03-06 13:53] LABS: Alanine Aminotransferase 29 U/L (12-78); Albumin Level 4.1 g/dl (3.5-5.0); Albumin/Globulin Ratio 1.2 (1.1-1.8); Alkaline Phosphatase 103 U/L (38-126); Anion Gap 14.8 mEq/L (5-15); Aspartate Amino Transferase 34 U/L (17-59); Bilirubin,Total 1.4 mg/dl (0.2-1.3); Blood Urea Nitrogen 40 mg/dl (9-20); Calcium 9.1 mg/dl (8.4-10.2); Carbon Dioxide 22 mmol/L (22.0-30.0); Creatinine Clearance Estimated 24 mL/min (50-200); Estimated Glomerular Filt Rate 22 ml/min (>60); GFR (African American) 26 ML/MIN (>60); Globulin 3.4 g/dL (1.3-3.2); Glucose 164 mg/dl (74-100); Total Protein,Serum 7.5 g/dl (6.3-8.2)
[2020-03-06 16:00] VITALS: BP 184/100; PULSE 72; PULSE 80; RESP 20; TEMP 36.6; O2SAT 98
--- NOTE | 2020-03-06 16:21 | PC.NURSE ---
LLE lateral dressing changed. Wound is beefy red. Dressing: kerlix soaked Dakin's solution, 4x4 gauze, wrapped in kerlix and coban
--- NOTE | 2020-03-06 17:12 | PC.NURSE ---
SBP 180s entire shift. He has been angry and agitated all shift. He states that he will stay @ [facility] 1 more day but then will sign out AMA. He will pace around the room and even threw sheets secondary to agitation. Educated him on the importance of medication management, especially for HTN. He has been non compliant with meds @ home. LLE dressing changed. No issues noted.
--- NOTE | 2020-03-06 19:19 | PC.NURSE ---
report given to sai
[2020-03-06 20:00] VITALS: BP 186/115; PULSE 60; PULSE 62; RESP 20; TEMP 36.7; O2SAT 98
[2020-03-07] VITALS: BP 176/100; PULSE 60; RESP 20; TEMP 37.1; O2SAT 99
--- NOTE | 2020-03-07 03:34 | PC.NURSE ---
Pt A&OX4. lungs diminished throughout. NSR on tele. BP still remains elevated Carroll made aware. Pt denies any pain SOA. Pt has ambulated to . LLL dressing in place c/d/i
[2020-03-07 03:50] VITALS: BP 155/105; PULSE 59; RESP 18; TEMP 36.6; O2SAT 98
[2020-03-07 04:00] VITALS: PULSE 50
[2020-03-07 04:58] VITALS: BMI 41.2
[2020-03-07 07:04] LABS: Chloride 106 mmol/L (98-107); Potassium 4.2 mmoL/L (3.5-5.1); Sodium 139 mmol/L (136-145)
[2020-03-07 07:07] LABS: Anion Gap 13.2 mEq/L (5-15); Blood Urea Nitrogen 48 mg/dl (9-20); Calcium 9.2 mg/dl (8.4-10.2); Carbon Dioxide 24 mmol/L (22.0-30.0); Creatinine Clearance Estimated 24 mL/min (50-200); Estimated Glomerular Filt Rate 22 ml/min (>60); GFR (African American) 26 ML/MIN (>60); Glucose 88 mg/dl (74-100)
[2020-03-07 08:00] VITALS: BP 167/100; PULSE 65; RESP 17; TEMP 37; O2SAT 100
--- NOTE | 2020-03-07 08:22 | HMH.PNCARD ---
Subjective Date: 03/07/20 Time: 08:22 Principal diagnosis: Malignant HTN Interval history: 49-year-old white male in bed in no acute distress. States his headache has resolved and he feels like an YASMIN and is anxious to be discharged home. Exam Vital signs and Labs for Last 24 Hours: Temp Pulse Resp BP Pulse Ox 97.9 F 50 L 18 155/105 H 98 03/07/20 03:50 03/07/20 04:00 03/07/20 03:50 03/07/20 03:50 03/07/20 03:50 Laboratory Results - last 24 hr 03/06/20 13:23: WBC 10.5, RBC 5.13, Hgb 14.9, Hct 42.6, MCV 83.1, MCH 28.9, MCHC 34.8, RDW 15.0, Plt Count 193, MPV 9.2, Neut % (Auto) 77.9, Lymph % (Auto) 15.3, [place] % (Auto) 2.4, Eos % (Auto) 3.8, Baso % (Auto) 0.6, Neut # (Auto) 8.2 H, Lymph # (Auto) 1.6, [place] # (Auto) 0.3, Eos # (Auto) 0.4, Baso # (Auto) 0.1 03/06/20 13:23: Sodium 140, Potassium 3.8, Chloride 107, Carbon Dioxide 22, Anion Gap 14.8, BUN 40 H, Creatinine 3.10 H, Estimated Creat Clear 24, Estimated GFR 22 L, Est GFR ( Amer) 26 L, Glucose 164 H, Calcium 9.1, Total Bilirubin 1.4 H, AST 34, ALT 29, Alkaline Phosphatase 103, Total Protein 7.5, Albumin 4.1, Globulin 3.4 H, Albumin/Globulin Ratio 1.2 03/07/20 06:23: Sodium 139, Potassium 4.2, Chloride 106, Carbon Dioxide 24, Anion Gap 13.2, BUN 48 H, Creatinine 3.10 H, Estimated Creat Clear 24, Estimated GFR 22 L, Est GFR ( Amer) 26 L, Glucose 88 D, Calcium 9.2 I & O for Last 24 hours: Intake & Output 03/04/20 03/05/20 03/06/20 03/07/20 11:59 11:59 11:59 11:59 Intake Total 1240 / 1240 1940 / 1940 250 / 250 Output Total 1800 / 1800 2300 / 2300 2350 / 2350 Balance -560 / -560 -360 / -360 -2100 / -2100 Weight 242 lb 4.009 oz 244 lb 2 oz 241 lb 11.2 oz - *Routine HEENT Exam Head: Present: normocephalic Eye: Present: EOMI, PERRL ENT: Present: mucous membranes moist - *Routine Respiratory Exam Present: CTA bilaterally - *Routine Cardiovascular Exam Present: RRR - *Routine Extremities Exam Absent: cyanosis, clubbing, edema - *Routine Neurological Exam Present: alert, oriented X3 Progress Note: A&P (1) ZENON (acute kidney injury) Status: Acute Current Visit: Yes (2) Hypertensive emergency Status: Acute Current Visit: Yes (3) Obesity Status: Acute Current Visit: No (4) Hypertension Status: Chronic Current Visit: Yes Assessment and Plan for All Diagnoses:: 1. Malignant hypertension, improved control on current medical regimen of metoprolol succinate 200 mg daily, amlodipine 10 mg daily and minoxidil 10 mg daily. Blood pressure is not to goal but is significantly improved with patient's symptoms of chest pain and headache resolved. 2. Chronic kidney disease, stage 4, stable. Recommend outpatient nephrology evaluation. Patient can be discharged home from cardiology standpoint with follow-up in 1 to 2 weeks.
[2020-03-07 09:00] VITALS: BP 164/98
--- NOTE | 2020-03-07 09:31 | HMH.DCSUM ---
General - General Admission date:: 03/04/20 Discharge date: 03/07/20 HPI HPI: this wm presented to the ed with elevated bp and headache 49-year-old male with history of hypertension presenting to the emergency department with elevated blood pressure at home, headache. Headache is described as global and throbbing. It is located behind his eyes and radiates to the back of his head. pouding. Symptoms started this morning when he woke up. Were gradual in onset, not sudden. Feels similar to previous hypertensive headaches. He takes amlodipine, isosorbide, carvedilol. No changes in his medications. Denies recent illness, fevers, chills, nausea, vomiting. No blurry vision or chest pain. pt was admitted for meds and reestablish bp meds Hospital Course Hospital Course: 49-year-old male patient reports to the [facility] complaining of headache and with a blood pressure of 200/139, was transferred to the emergency room and started on a nicardipine drip. Blood pressure was reduced nicardipine drip was DC'd and oral medications restarted. Patient reported that his headache was throbbing and pounding in his entire head. He denies any chest pain, fever/chills/body aches or N/V/D, or any blurred vision. Retinae was elevated at 3.9 he does have stage IV kidney disease he does admit to not taking his blood pressure medication correctly due to he had misplaced them at that time, he states that he lives by himself. This morning he reports he will be moving in with his ex-girlfriend and she will help take care of him he reports she is aware of this, discussion held with patient on importance of taking his blood pressure medication exactly as prescribed and possible medical outcomes, he reports he does understand this and will do better Elevated blood pressures have been treated per cardiology suggestions patient's blood pressure this morning is 164/98. He will follow-up with primary care in 1 week and cardiology in 2 weeks he is aware of this and agreeable. Chest x-ray showed no acute findings and head CT showed sinus disease and no acute findings there Currently this morning sodium was 139, potassium was 4.2, BUN/creatinine is 48/3.1, and GFR is 22 Cardiology has seen and recommends: 1. Malignant hypertension, improved control on current medical regimen of metoprolol succinate 200 mg daily, amlodipine 10 mg daily and minoxidil 10 mg daily. Blood pressure is not to goal but is significantly improved with patient's symptoms of chest pain and headache resolved. 2. Chronic kidney disease, stage 4, stable. Recommend outpatient nephrology evaluation. Patient can be discharged home from cardiology standpoint with follow-up in 1 to 2 weeks. We will discharge home today New medications include metoprolol succinate 200 mg daily, amlodipine 10 mg daily, and minoxidil 10 mg daily Follow-up with PCP in 1 week Follow-up with cardiology in 2 weeks Patient is aware of extreme importance of taking medications per instruction and possible medical outcomes Objective Vital signs: Temp Pulse Resp BP Pulse Ox 98.6 F 65 17 164/98 H 100 03/07/20 08:00 03/07/20 08:00 03/07/20 08:00 03/07/20 09:00 03/07/20 08:00 no acute distress, chronically ill appearing - *Routine HEENT Exam Head: Present: normocephalic. Absent: tenderness of temporal artery ENT: Present: mucous membranes moist. Absent: sinus tenderness - *Routine Neck Exam Present: full ROM, trachea midline. Absent: JVD, tracheal deviation - *Routine Respiratory Exam Present: wheezes. Absent: accessory muscle use - *Routine Cardiovascular Exam Present: RRR - *Routine Abdominal Exam Present: soft, normoactive bowel sounds. Absent: tenderness, firm - *Routine Skin Exam Present: wounds Comments: Kevon DIEZ - *Routine Neurological Exam Present: alert, oriented X3 - Routine Psychiatric Exam Present: normal affect, normal thought process Results Labs on day of disc
== END 2020-03-07 12:25 | disposition home or self-care (01) | DRG 305 ==
LOC: UTC 16:31 → ER 16:44 → 2ND 21:44
PROVIDERS: Family Medicine; Admitting Provider Emergency Medicine; Emergency Provider Emergency Medicine; PCP Emergency Medicine; Visit Provider Emergency Medicine
DX: I16.1 Hypertensive emergency (principal); Z68.41 Body mass index [BMI] 40.0-44.9, adult; N17.9 Acute kidney failure, unspecified; N18.4 Chronic kidney disease, stage 4 (severe); I12.9 Hypertensive chronic kidney disease with stage 1 through stage 4 chronic kidney disease, or unspecified chronic kidney disease; I25.10 Atherosclerotic heart disease of native coronary artery without angina pectoris; I48.0 Paroxysmal atrial fibrillation; E78.5 Hyperlipidemia, unspecified; E66.01 Morbid (severe) obesity due to excess calories; I25.2 Old myocardial infarction; Z72.0 Tobacco use; T44.7X6A Underdosing of beta-adrenoreceptor antagonists, initial encounter; T46.3X6A Underdosing of coronary vasodilators, initial encounter; T46.5X6A Underdosing of other antihypertensive drugs, initial encounter; Z91.128 Patient's intentional underdosing of medication regimen for other reason
CPT/HCPCS: 36415; 70450; 71046; 80048; 80053; 84484; 85025; 86328; 93005; 96365; 99285; G0463

== ENCOUNTER → 2020-03-11 10:45 | Outpatient (CLI) | payer BC, SELFPAY ==
[2020-03-11 11:34] VITALS: BP 185/132; PULSE 61; RESP 18; TEMP 36.7; O2SAT 97
--- NOTE | 2020-03-11 12:16 | PC.NURSE ---
pt was advised to get bp checked out. pt stated he has medicine at home, and if he gets checked out they will make me staty educated given to pt on high bp.
== END ==
PROVIDERS: PCP Emergency Medicine; Visit Provider Surgery
DX: L03.116 Cellulitis of left lower limb (principal); Z48.00 Encounter for change or removal of nonsurgical wound dressing
CPT/HCPCS: G0463

== ENCOUNTER → 2020-03-12 12:11 | Outpatient (CLI) | payer BC, SELFPAY | PROVIDERS: PCP Emergency Medicine; Visit Provider Surgery | DX: L03.116 Cellulitis of left lower limb (principal); Z48.00 Encounter for change or removal of nonsurgical wound dressing | CPT/HCPCS: G0463 ==

== ENCOUNTER 2020-03-13 09:40 | Outpatient (CLI) | payer BC, SELFPAY | END 2020-03-13 10:20 | disposition home or self-care (01) | LOC: INF 09:45 | PROVIDERS: Visit Provider Surgery | DX: L03.116 Cellulitis of left lower limb (principal); Z48.00 Encounter for change or removal of nonsurgical wound dressing | CPT/HCPCS: G0463 ==

== ENCOUNTER 2020-03-14 08:04 | Outpatient (CLI) | payer BC, SELFPAY | END 2020-03-14 08:20 | disposition home or self-care (01) | LOC: INF 08:04 | PROVIDERS: Visit Provider Surgery | DX: L03.116 Cellulitis of left lower limb (principal); Z48.00 Encounter for change or removal of nonsurgical wound dressing | CPT/HCPCS: G0463 ==

== ENCOUNTER 2020-03-21 09:26 | Outpatient (CLI) | payer BC, SELFPAY | END 2020-03-21 10:00 | disposition home or self-care (01) | LOC: INF 09:26 | PROVIDERS: Visit Provider Surgery | DX: L03.116 Cellulitis of left lower limb (principal) | CPT/HCPCS: G0463 ==

== ENCOUNTER 2020-03-22 13:14 | Outpatient (CLI) | payer BC, SELFPAY | END 2020-03-22 13:31 | disposition home or self-care (01) | LOC: INF 13:14 | PROVIDERS: Visit Provider Surgery | DX: L03.116 Cellulitis of left lower limb (principal); Z48.00 Encounter for change or removal of nonsurgical wound dressing | CPT/HCPCS: G0463 ==

== ENCOUNTER 2020-03-23 14:13 | Outpatient (CLI) | payer BC, SELFPAY | END 2020-03-23 14:46 | disposition home or self-care (01) | LOC: INF 14:13 | PROVIDERS: Visit Provider Surgery | DX: L03.116 Cellulitis of left lower limb (principal) | CPT/HCPCS: G0463 ==

== ENCOUNTER 2020-03-24 15:47 | Outpatient (CLI) | payer BC, SELFPAY | END 2020-03-24 16:30 | disposition home or self-care (01) | LOC: INF 15:47 | PROVIDERS: Visit Provider Surgery | DX: L03.116 Cellulitis of left lower limb (principal); Z48.00 Encounter for change or removal of nonsurgical wound dressing | CPT/HCPCS: G0463 ==

== ENCOUNTER → 2020-03-25 20:26 | Outpatient (CLI) | payer BC, SELFPAY ==
--- NOTE | 2020-03-26 03:02 | PC.NURSE ---
has open wound of l lateral leg from i and d of former spider bite as noted per pt. old dressing was saturated with saline prior to removal.old dressing had yellow foul smelling drainage. area was cleaned with ns and saturated gauze covered by dry 4x4 secured with kerlix and coban wrapped around leg. wound bed was found to be red .edges with no rednesss size approx 6 cm wide and approx 5cm with a depth of approx 1/2 cm in a rounded type formation
== END ==
PROVIDERS: PCP Emergency Medicine; Visit Provider Surgery
DX: L03.116 Cellulitis of left lower limb (principal); Z48.00 Encounter for change or removal of nonsurgical wound dressing
CPT/HCPCS: G0463

== ENCOUNTER → 2020-03-27 06:45 | Outpatient (CLI) | payer BC, SELFPAY ==
--- NOTE | 2020-03-27 06:45 | NM_ITS ---
APPROVED REPORT Exam: Nuclear Stress Test Indication: Chest pain, Abnorml EKG, SOB, HTN, High cholesterol, Tobacco use, Family history Patient Location: Outpatient Stress Tech: Lisa Kebede [place] Tech:Katie Johnson, ARRT, RT (R)(N) Ht: 5 ft 4 in Wt: 250 lbs HR: 62 bpm BP: 145/95 mmHg BSA: 2.15 m2 BMI: 42.9 History: Chest pain, Abnorml EKG, SOB, HTN, High cholesterol, Tobacco use, Family history Procedure: Patient received a 0.4 mg of intravenous Lexiscan, resting heart rate 62 bpm, resting blood pressure 145/95 mmHg, with Lexiscan maximum heart rate achived was 76 bpm which is Less than 85 % of the maximum predicted heart rate and blood pressure was 146/85 mmHg. With Lexiscan, patient denied any complaint of chest pain. Electrocardiogram Resting electrocardiogram showed sinus rhythm nonspecific ST-T changes, with Lexiscan there is less than 1.[address] segment depression noted from the baseline EKG. The EKG portion of the Lexiscan Myoview is nondiagnostic. Cardiac Stress and Resting SPECT Images: Cardiac Stress and Resting SPECT images were obtained using technetium 99m Myoview 31.2 mCi stress and 10.83 mCi at rest. Gated SPECT for analysis of segmental wall motion and calculation of the ejection fraction also done. Cardiac stress and resting SPECT images show a small area of fixed defect involving the posterolateral wall which is likely secondary to small area of myocardial scarring without significant sally-infarct ischemia. Computer derived ejection fraction 52% with mild posterolateral wall hypokinesis, right ventricle is normal size and contractility. Conclusion: 1. The EKG portion of the Lexiscan Myoview is nondiagnostic due to baseline abnormal EKG. 2. Scintigraphic evidence of small area of myocardial scarring involving the posterolateral wall, computer derived ejection fraction 52% with segmental wall motion abnormality described above, right ventricle is normal size and contractility. 3. Abnormal Lexiscan Myoview study. Electronically signed by : Ricco Lobo, 03/27/2020 22:05:16
--- NOTE | 2020-03-27 06:45 | CA_ITS ---
APPROVED REPORT Exam: Pharmacologic Technologist: Lisa Kebede Ht: 5 ft 4 in Wt: 250 lbs BSA: 2.15 m2 HR: 62 bpm BP: 145/95 mmHg Indications: Chest pain, abnormal ekg Medical History Medications: Amlodipine,,,,, Metoprolol,,,,, DilTiazem,,,,, RIvaROXABAN,,,,, MiNOxidil,,,,, Stress Test Details Test: LEXISCAN HR Resting HR: 57 bpm Max Heart Rate (APMHR): 171 bpm Max HR Achieved: 77 bpm Target HR (85% APMHR): 145 bpm % of APMHR: 45 Recovery HR: 67 bpm BP Resting BP: 145.0/95.0 mmHg Max BP: 150.0/86.0 mmHg Recovery BP: 150.0/86.0 mmHg ECG Clinical Exercise duration: 04:00 min Highest Stage Achieved: Stress ECG Conclusion Resting ECG: Sinus Bradycardia, Abnormal EKG, Left bundle branch block Lexiscan portion completed. Patient complained of shortness of breath during peak infusion. Symptoms: Shortness of breath during peak infusion, resolved in recovery. No chest pain. Arrhythmias/Ectopy: No ectopy noted. ST-T Changes: Less than 1.[address] Depression. Conclusion: Images to follow. Test Summary RECOVERY 04:06 . . 68 . 150/ 86 . . REST 13:40 . . 57 . 145/ 95 . . Stage 1 . . . . . . . Myoview Injected Stage 1 01:00 . . 73 . . . . Stage 2 01:00 . . 76 . 146/ 85 . . Stage 3 01:00 . . 73 . 138/ 88 . . Stage 4 01:00 . . 72 . 147/ 85 . Stop exercise at 04:00 RECOVERY 01:00 . . 71 . 146/ 89 . . RECOVERY 02:00 . . 70 . 146/ 89 . . RECOVERY 03:00 . . 69 . 146/ 88 . . RECOVERY 04:00 . . 67 . 150/ 86 . . RECOVERY 04:06 . . 68 . 150/ 86 . . Electronically signed by : Ricco Lobo, 03/27/2020 22:01:12
--- NOTE | 2020-03-27 09:53 | HMH.ITSHM ---
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 []RIVAROXABAN MINOXIDIL DILTIAZEM METOPROLOL AMLODIPINE
== END ==
PROVIDERS: PCP Emergency Medicine; Visit Provider Nurse Practitioner Family
DX: R07.9 Chest pain, unspecified (principal); R94.31 Abnormal electrocardiogram [ECG] [EKG]; E78.5 Hyperlipidemia, unspecified; G45.9 Transient cerebral ischemic attack, unspecified; I25.10 Atherosclerotic heart disease of native coronary artery without angina pectoris; Z72.0 Tobacco use
CPT/HCPCS: 78452; 93017; A9502; J2785

== ENCOUNTER 2020-03-27 11:44 | Outpatient (CLI) | payer BC, SELFPAY ==
--- NOTE | 2020-03-27 12:25 | PC.NURSE ---
1225-called and left message with pt's brother in law to go to [email or web address] per to evaluate leg swelling.
== END 2020-03-27 11:55 | disposition home or self-care (01) ==
LOC: INF 11:44
PROVIDERS: Visit Provider Surgery
DX: L03.116 Cellulitis of left lower limb (principal)
CPT/HCPCS: G0463

== ENCOUNTER 2020-03-27 14:01 | Emergency (ER) | payer BC, SELFPAY ==
[2020-03-27 14:11] VITALS: BP 146/91; PULSE 80; RESP 20; TEMP 36.6; O2SAT 98; BMI 42.9
--- NOTE | 2020-03-27 14:43 | HMH.EDUTC ---
[facility] [place] Disposition Clinical Impression: Chronic wound of extremity, Lymphedema Disposition: Home, Self-Care Condition on Discharge: Good Instructions: Lymphedema, DI for Dependent Edema, DI for Lymphedema Additional Instructions: Follow up with wound care as you are already scheduled. Try to keep the leg elevated as much time as possible over the next few days. GO TO THE ER FOR ANY WORSENING SYMPTOMS OR CONCERNS Referrals: Zaki Fuller MD [Primary Care Provider] - Time of Disposition: 16:00 Medical Decision Making - Medical Records Medical records reviewed: No: I reviewed the patient's medical records. - Aram Inquiry Pt receiving controlled substance: No Vital Signs: 03/27/20 14:11 03/27/20 16:01 Temperature 97.8 F 97.8 F Temperature Source Oral Pulse Rate 80 Pulse Rate [Right Brachial] 80 Respiratory Rate 20 20 Blood Pressure 146/91 H Blood Pressure [Right Arm] 146/91 H Blood Pressure Mean [Right Arm] 109 Blood Pressure Source [Right Arm] Automatic Cuff Blood Pressure Position [Right Arm] Sitting 02 Sat by Pulse Oximetry 98 Oxygen Delivery Method Room Air Medical Decision Narrative: No dvt was found with the doppler. A large lymph node was noted up his leg close to his groin though. I passed this info on to wound care. He is to be rechecked there tomorrow. [facility] [place] HPI - General Stated complaint: leg swelling Time Seen by Provider: 03/27/20 14:15 Mode of Arrival: Ambulatory Source of Information: Patient Limitations: No Limitations Description of Symptoms (Recalled from Triage Doc. by RN): PATIENT C/O PAIN AND SWELLING TO LEFT OBREGON. REPORTS HE WAS BITTEN BY A SPIDER A COUPLE OF MONTHS AGO HEENT Symptoms (Recalled from RN notes): No Resp Symptoms (Recalled from RN notes): No Skin Symptoms (Recalled from RN notes): No MS Symptoms (Recalled from RN notes): Yes Functional Status (Recalled from RN notes): WNL - History of Present Illness Provider Complaint: He has a history of a chronic leg wound on his left lower leg. He has been going to the infusion dept here to have wound care. Today at the wound care his left leg was noted to be swollen more than the right. He states that he was told to come in here to the [facility] to make sure he doesn't have a blood clot. He denies any personal history of dvt. - Related Data Home Medications Medication Instructions Recorded Confirmed Amlodipine Besylate [Amlodipine 10 mg PO DAILY 03/21/20 03/24/20 10mg Tab] Metoprolol Succinate [Metoprolol 200 mg PO DAILY 03/21/20 03/24/20 Succinate 100mg Tablet*] minoxidiL [Loniten 10mg tablet] 10 mg PO DAILY 03/21/20 03/24/20 diltiazem HCl 240 mg 240 mg PO DAILY 03/24/20 03/24/20 capsule,extended release 24 hr rivaroxaban 15 mg tablet 15 mg PO DAILY 03/24/20 03/24/20 Allergies Allergy/AdvReac Type Severity Reaction Status Date / Time No Known Allergies Allergy Verified 03/24/20 15:06 - Worker's Comp Is this a Worker's Comp case?: No [facility] History - Hepatitis A Screen Drug use history?: No High risk sexual behaviors?: No History of sexually transmitted infection?: No Currently employed?: No Childcare worker?: No Do you have indoor plumbing?: Yes Do you have electricity?: Yes Attestation statement:: This patient has been screened for Hepatitis A risk factors. I have reviewed the patient's past medical history: Yes Medical History: Reports:: Arrhythmia, Atrial Fibrillation, Coronary Artery Disease, Hyperlipidemia, Hypertension, Transient Ischemic Attacks (TIA) Denies:: Cancer, Diabetes Mellitus Type 1, Diabetes Mellitus Type 2, Internal Pacemaker, MRSA Other Medical History: Reports: Arthritis Other Surgeries: Yes: No Previous Surgery, Cardiac Catheterization, Other ([facility]). No: Pacemaker Amputation: No Fractures: No Comment: leg - Social History Smoking Status: Current every day smoker Tobacco Type: cigarettes # Packs/Day (cigarettes): 1 Alcohol
--- NOTE | 2020-03-27 15:00 | CA_ITS ---
APPROVED REPORT Left Lower Extremity Venous Study for DVT. 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 Study suggests no evidence of SVT of the left lower extremity. 5.0 cm lymph node seen left groin. Conclusion Study suggests no evidence of DVT of the left lower extremity. Study suggests no evidence of SVT of the left lower extremity. 5.0 cm lymph node seen left groin. Critical Notification Date: 03/27/2020 Time: 15:45 Physician Name: Jatin Delgado Electronically signed by : Jefferson Qureshi MD 03/27/2020 16:31:04
[2020-03-27 16:01] VITALS: BP 146/91; PULSE 80; RESP 20; TEMP 36.6; O2SAT 98
== END 2020-03-27 16:03 | disposition home or self-care (01) ==
PROVIDERS: Emergency Provider Nurse Practitioner Family; PCP Emergency Medicine
DX: L03.116 Cellulitis of left lower limb (principal); I89.0 Lymphedema, not elsewhere classified; I48.91 Unspecified atrial fibrillation; I25.10 Atherosclerotic heart disease of native coronary artery without angina pectoris; E78.5 Hyperlipidemia, unspecified; I10 Essential (primary) hypertension; F17.210 Nicotine dependence, cigarettes, uncomplicated
CPT/HCPCS: 93971; 99201

== ENCOUNTER 2020-03-28 10:26 | Outpatient (CLI) | payer BC, SELFPAY | END 2020-03-28 11:15 | disposition home or self-care (01) | LOC: INF 10:26 | PROVIDERS: Visit Provider Surgery | DX: L03.116 Cellulitis of left lower limb (principal) | CPT/HCPCS: G0463 ==

== ENCOUNTER 2020-04-05 11:30 | Outpatient (CLI) | payer BC, SELFPAY | END 2020-04-05 11:40 | disposition home or self-care (01) | LOC: INF 13:38 | PROVIDERS: PCP Emergency Medicine; Visit Provider Surgery | DX: L03.116 Cellulitis of left lower limb (principal); Z48.00 Encounter for change or removal of nonsurgical wound dressing | CPT/HCPCS: G0463 ==

== ENCOUNTER 2020-04-06 11:20 | Outpatient (CLI) | payer BC, SELFPAY | END 2020-04-06 11:30 | disposition home or self-care (01) | LOC: INF 11:32 | PROVIDERS: Visit Provider Surgery | DX: L03.116 Cellulitis of left lower limb (principal); Z48.00 Encounter for change or removal of nonsurgical wound dressing | CPT/HCPCS: G0463 ==